=== PATIENT | male | born 1985 | race African-American/Black ===

== ENCOUNTER 2016-05-24 23:21 | Emergency (ER) | payer OTHER, MEDICAID ==
[2016-05-24 23:53] LABS: ABSOLUTE EOSINOPHILS # (AUTO) 0.1 10^3/uL (0.0-0.6); ABSOLUTE LYMPHOCYTES (AUTO) 2.9 10^3/uL (0.5-4.7); ABSOLUTE MONOCYTES (AUTO) 0.6 10^3/uL (0.1-1.4); ABSOLUTE NEUT (AUTO) 4.4 10^3/uL (1.7-8.2); BASOPHILS % (AUTO) 0.4 % (0-2); EOSINOPHILS % (AUTO) 1.5 % (0-6); HEMATOCRIT 41.2 % (37.9-51.0); HEMOGLOBIN 14.3 g/dL (13.5-17.0); HGB HCT DIFFERENCE 1.7; LYMPHOCYTES % (AUTO) 35.6 % (13-45); MEAN CORPUSCULAR HEMOGLOBIN 31.9 pg (27.0-33.4); MEAN CORPUSCULAR HGB CONC 34.7 g/dL (32.0-36.0); MEAN CORPUSCULAR VOLUME 92 fl (80-97); MONOCYTES % (AUTO) 7.4 % (3-13); RED BLOOD COUNT 4.48 10^6/uL (4.35-5.55); RED CELL DISTRIBUTION WIDTH 13.3 % (11.5-14.0); SEGMENTED NEUTROPHILS % (AUTO) 55.1 % (42-78)
[2016-05-25 00:03] LABS: APPEARANCE,URINE CLEAR; BILIRUBIN,URINE NEGATIVE (NEGATIVE); GLUCOSE, URINE NEGATIVE (NEGATIVE); KETONES,URINE NEGATIVE (NEGATIVE); LEUKOCYTE ESTERASE,URINE NEGATIVE (NEGATIVE); NITRITE,URINE NEGATIVE (NEGATIVE); PROTEIN,URINE NEGATIVE (NEGATIVE); URINE SPECIFIC GRAVITY 1.008; UROBILINOGEN,URINE NEGATIVE mg/dL (<2.0)
[2016-05-25 00:08] LABS: ALANINE AMINOTRANSFERASE 31 U/L (21-72); ALBUMIN 4.4 g/dL (3.5-5.0); ALKALINE PHOSPHATASE 79 U/L (38-126); ANION GAP 13 (5-19); ASPARTATE AMINO TRANSFERASE 22 U/L (17-59); BILIRUBIN,DIRECT 0.2 mg/dL (0.0-0.4); BILIRUBIN,TOTAL 0.4 mg/dL (0.2-1.3); BLOOD UREA NITROGEN 10 mg/dL (7-20); CALCIUM 9.4 mg/dL (8.4-10.2); CARBON DIOXIDE 24 mmol/L (22-30); CHLORIDE 106 mmol/L (98-107); CREATININE RESULT 0.84 mg/dL (0.52-1.25); GLUCOSE 118 mg/dL (75-110); POTASSIUM 4.1 mmol/L (3.6-5.0); SODIUM 142.5 mmol/L (137-145); TOTAL PROTEIN 6.9 g/dL (6.3-8.2)
[2016-05-25 00:10] LABS: ALCOHOL < 10 mg/dL (NONE DETECTED)
[2016-05-25 00:16] LABS: URINE BARBITURATES SCREEN NEGATIVE; URINE METHADONE SCREEN NEGATIVE; URINE OPIATES LOW NEGATIVE; URINE PHENCYCLIDINE SCREEN NEGATIVE
--- NOTE | 2016-05-25 01:34 | ER Document Report ---
ED General - General Chief Complaint: Psych Problem Stated Complaint: SUICIDAL/HOMICIDAL IDEATION Notes: Patient is a 31-year-old male with past medical history of schizoaffective disorder who presents with suicidal ideation. Patient is very guarded historian , will not tell me exactly what happened tonight. He complains only that he has had "lots of bad stuff my life and it isn't going to ever get better". Repeatedly states "I hate life I just want to ". Denies any acute medical complaints. States he's been hospitalized in the past for similar presentations. He denies any drug or alcohol use and states he does take Zyprexa for his schizoaffective disorder. History is otherwise limited secondary to patient cooperation - Related Data Allergies/Adverse Reactions: No Known Allergies Allergy (Unverified 05/25/16 02:31) Past Medical History - General Information source: Patient - Social History Smoking Status: Current Every Day Smoker Chew tobacco use (# tins/day): No Frequency of alcohol use: None Drug Abuse: None Lives with: Other - [facility] Family History: Reviewed & Not Pertinent Psychiatric Medical History: Reports: Hx Schizophrenia Surgical Hx: Negative Review of Systems - Review of Systems Notes: Constitutional: Negative for fever. HENT: Negative for sore throat. Eyes: Negative for visual changes. Cardiovascular: Negative for chest pain. Respiratory: Negative for shortness of breath. Gastrointestinal: Negative for abdominal pain, vomiting or diarrhea. Genitourinary: Negative for dysuria. Musculoskeletal: Negative for back pain. Skin: Negative for rash. Neurological: Negative for headaches, weakness or numbness. 10 point ROS negative except as marked above and in HPI. Physical Exam - Vital signs Vitals: Temp Pulse Resp BP Pulse Ox 97.9 F 70 14 108/65 97 05/25/16 00:21 05/25/16 00:21 05/25/16 00:21 05/25/16 00:21 05/25/16 00:21 Interpretation: Normal Notes: PHYSICAL EXAMINATION: GENERAL: Well-appearing, well-nourished and in no acute distress. HEAD: Atraumatic, normocephalic. EYES: Pupils equal round and reactive to light, extraocular movements intact, sclera anicteric, conjunctiva are normal. ENT: nares patent, oropharynx clear without exudates. Moist mucous membranes. NECK: Normal range of motion, supple without lymphadenopathy LUNGS: Breath sounds clear to auscultation bilaterally and equal. No wheezes rales or rhonchi. HEART: Regular rate and rhythm without murmurs ABDOMEN: Soft, nontender, normoactive bowel sounds. No guarding, no rebound. No masses appreciated. EXTREMITIES: Normal range of motion, no pitting or edema. No cyanosis. NEUROLOGICAL: No focal neurological deficits. Moves all extremities spontaneously and on command. PSYCH: Guarded on contact. Depressed mood. Poor eye contact. SKIN: Warm, Dry, normal turgor, no rashes or lesions noted. Course - Re-evaluation Re-evalutation: 05/25/16 01:32 Patient presents with suicidal ideation with no specific plan. Patient continuously states me "I just wanted dying get this over with". He also states "I know what I'm saying will probably get me hospitalized but I don't care anymore man. I just want to . I hate life." He denies any acute medical complaints. His medical screening laboratories and exam are unremarkable. He is medically cleared for evaluation by psychiatry in the morning and has been placed on an involuntary commitment - Vital Signs Vital signs: Temp Pulse Resp BP Pulse Ox 97.9 F 70 14 108/65 97 05/25/16 00:21 05/25/16 00:21 05/25/16 00:21 05/25/16 00:21 05/25/16 00:21 - Laboratory Result Diagrams: 05/24/16 23:44 05/24/16 23:44 Laboratory results interpreted by me: 05/24/16 23:44 Glucose 118 H Salicylates < 1.0 L Acetaminophen < 10 L Discharge - Discharge Clinical Impression: Suicidal ideation Condition: Good Disposition: PSYCH HOSP/UNIT
[2016-05-25] MEDS ORDERED: IBUPROFEN 800 MG TABLET PO ONE (09:46)
[2016-05-25] MEDS ORDERED: LORATADINE 10 MG TABLET PO ONE (09:47)
--- NOTE | 2016-05-25 09:50 | ER Document Report ---
Doctor's Note Notes: 05/25/16 09:47 Medical rounds: Chart reviewed and patient interviewed briefly. Patient complains of a mild headache, also mild pressure-like sensation and decreased hearing in the right ear. Vital signs are normal. Laboratory values satisfactory. Patient is alert, oriented, and coherent. He appears to be in no distress. There is no nuchal rigidity. Otoscopy reveals some mild serous otitis media in the right ear. Orders are written for ibuprofen and Claritin. He remains medically stable, pending psych evaluation and disposition.
--- NOTE | 2016-05-25 16:07 | PSYCHOLOGICAL NOTE ---
Psych Note - Psych Note Psych Note: Patient is a 31-year-old male who presented overnight via EMS with complaints of suicidal ideations. Patient was noted upon arrival to be diagnosed with schizoaffective disorder, bipolar type and prescribed Zyprexa. Patient today states he was stressed out and acknowledges he made statements regarding wanting to . Patient reports he stays over on [facility]. He states he has been a resident there 2 weeks. Patient states prior to [facility] he was discharged from [facility] psychiatric unit. Patient reports he was at the psych unit 27 days. Patient reports [facility] to [facility], he has historically been a resident of various group homes, mostly in or around [place]. Patient states the precipitating event last night was his frustrations with the computer when he was attempting to complete his FAFSA form. Patient states he is eager to return to school and states when it did not work last night he became upset. Patient states he attempted to "walk it off," but when he was still upset he decided to call 911. Patient states that addition to wanting to enroll back in school he has other stressors stemming from familial strife between he and his stepfather. Patient is unable to tell me at this time 100% if he has his own guardian and eludes that his stepfather petitioned the court. Patient denies current suicidal/ homicidal ideations, intent, plan, means. Triage Note: "Pt presents reporting he argued with the [facility] leader about his missing meds last night; Pt is upset that his mothers EX has gardienship over him, He dosnt want to be in the [facility]. Pt broke a chair and table this afternoon and called 911 on himself. Pt perception is he is going to longterm after he is cleared here related to the chair and table. Pt states he has a "vodoo" or spirtiual curse attatched to him that cant be removed. Pt states "I' ll never have what I want in life, I'll never get what I need." Pt states "I just so tired of it all and I dont want to live anymore." pt denies a plan or a means. Pt states "its no good talking about all this cause you can't change it, This is just the way my life gonna be and I'm over it". Pt denies ever having hallucinations. My assessment of pt's spirtual comments seemed to be his spiritual beliefs not delusions. Pt is calm and cooperative, tearfull at times. Pt agrees to give us a chance to try and address his issues and contracts not to harm him self. Pt's belongings are inventoried with security in my presence and secured. Pt is wearing paper scrubs and provided with drink and food. Pt denies other needs. On visual assessment no S/S of injury and pt denies the same." [ End ] Mr. Pena, , stepfather: states he has been his legal guardian since 2012. Guardian reports the patient gets frustrated when things dont go his way, probably similar to last night. Guardian states in the 12th grade, was his initial onset of Schizophrenia. Guardian states he is not able to take on but so much at a time (mentally). He states that the patient has never attempted to harm anyone else or himself. Guardian adamant that he has no knowledge of patient putting his hands on others. Guardian states that his (who is not the patient's mother) is having surgery tomorrow and the patient cannot come to his home, nor would the patient want to see him because he does not like him, nor does he want him to be his guardian. Guardian states the patient's mother does have communication with the patient; however, has similar MH needs. [facility] : states the patient is unable to return to the [facility] requesting return contact from Director. Did provide meds: Olanzapine 15 mg po bid Famotidine 20 mg po bid Quetiapine Fuma 100 mg po qhs Prazosin HCL 1mg po qhs Zopidem 10 mg po prn qhs Mr. Fuentes returned contact and stated that the patient verbally threatened staff and residents that he was going to kill them. Mr. Fuentes states the patient cannot come back to the home due to the verbal threats. Discussed with salesman/owner that under the [place] GS they cannot refuse a patient unless there was a physical act and that a verbal threat is not covered under the statute to legally evict a resident. Mr. Fuentes stated, "we can not have an individual reside at the [facility] who is threatening to kill others," and states, "if the state shows up, then we will deal with the state." Claim Manager with [facility] : left msg via call center requesting return contact. Did return contact stating she would look into alternative residential settings; however, there would not be any options this evening, nor are there respite options. Will return contact tomorrow. Patient is A&O. Mood is euthymic with normal affect. Patient denies suicidal/ homicidal ideations, intent, plan, or means. Patient denies SI/HI, intent, plan , or means. Patient denies A/V H; delusions not noted. Thought processes were guarded. Conversational speech was WNL for this patient. Intellectual abilities were estimated within average range. Attention and focus were poor. Insight, judgment, and impulse control were poor. Unspecified Schizophrenia and Other Psychotic Disorder Patient is psychiatrically cleared and recommended for rescind IVC. Patient no longer meets criteria for IVC as she denies SI/HI and denies intent behind his statements last night. Patient is recommended to remain in the ED under a mental health hold for additional observation and placement in a residential setting. Patient will not be able to leave the ER. Patient does have a legal guardian who lives out of the area and states the patient does not like him, would not want to be there, and his is having surgery in the morning and he cannot warp picker the patient and manage him safely in his home. Patient has been referred for medical social worker consult to assist with discharge planning. At this time, after discussing with MD there is no safe discharge option at this time. I consulted with Dr. Willett in regards to the care and management of this patient. ED MD is in agreement with disposition and recommendations.
[2016-05-25] MEDS ORDERED: CLONIDINE HCL 0.1 MG TABLET PO SCH (18:00)
[2016-05-25] MEDS: FAMOTIDINE 20 MG TABLET PO SCH (18:03)
[2016-05-25] MEDS: OLANZAPINE 5 MG TABLET PO SCH (18:03)
[2016-05-25] MEDS: QUETIAPINE FUMARATE 100 MG TABLET PO SCH (21:58)
[2016-05-25] MEDS: CLONIDINE HCL 0.2 MG TABLET PO SCH (21:59)
[2016-05-26] MEDS: FAMOTIDINE 20 MG TABLET PO SCH ×2 (09:38→19:44)
[2016-05-26] MEDS: OLANZAPINE 5 MG TABLET PO SCH ×2 (09:38→19:43)
--- NOTE | 2016-05-26 10:13 | PSYCHOLOGICAL NOTE ---
Psych Note - Psych Note Psych Note: Patient is a 31-year-old male who initially presented via EMS from his longterm, [facility]. The residential placement has refused to accept the patient back into their program. Patient is not his own guardian and therefore cannot be discharged to the homeless retirement via cab. Patient denied suicidal and homicidal ideations. Patient has been calm and cooperative while here in the department. [facility] adult protective services : Filed APS report with social and human services assistant Aysha. Advised that patient has been left in the emergency room by both his guardian as well as his residential placement. Provided information and answered all questions to the best of my ability. Requested return phone contact. Frit Mixer And Burner with [facility] : States she will attempt to identify an alternative placement. She additionally reports she cannot provide a timeframe and states it could be the later part of this week if she is able to find a replacement. pharmacy clinical coordinator advised that that is too lengthy of a time and requested her assistance in finding something sooner. She will return contact Patient is A&O. Mood is euthymic with normal affect. Patient denies suicidal/ homicidal ideations, intent, plan, or means. Patient denies SI/HI, intent, plan , or means. Patient denies A/V H; delusions not noted. Thought processes were guarded. Conversational speech was WNL for this patient. Intellectual abilities were estimated within average range. Attention and focus were poor. Insight, judgment, and impulse control were poor. Unspecified Schizophrenia and Other Psychotic Disorder Patient remains psychiatrically cleared for discharge, but is recommended to remain on a mental health hold until an appropriate discharge plan is made. I consulted with Dr. Willett in regards to the care and management of this patient. ED MD is in agreement with disposition and recommendations.
--- NOTE | 2016-05-26 13:11 | EKG REPORT ---
SEVERITY:- BORDERLINE ECG - SINUS RHYTHM BORDERLINE T ABNORMALITIES, DIFFUSE LEADS : Confirmed by: Pam Sarah MD 26-May-2016 13:10:35
--- NOTE | 2016-05-26 13:31 | ER Document Report ---
Doctor's Note Notes: 05/26/16 10:30 Patient is resting comfortably. No complaints. He does not need anything at this time. Vitals are stable. Patient is medically stable. We are trying to get him into a residence at this time. Discussed with mental health.
[2016-05-26] MEDS: CLONIDINE HCL 0.2 MG TABLET PO SCH (23:30)
[2016-05-26] MEDS: QUETIAPINE FUMARATE 100 MG TABLET PO SCH (23:30)
--- NOTE | 2016-05-27 09:38 | ER Document Report ---
Doctor's Note Notes: 05/27/16 09:37 Resting comfortably on the bed. Vital signs stable. Continues to be a social disposition problem. Social workers are trying to find another snf for him to go into.
[2016-05-27] MEDS: OLANZAPINE 5 MG TABLET PO SCH ×2 (10:19→18:53)
[2016-05-27] MEDS: FAMOTIDINE 20 MG TABLET PO SCH ×2 (10:19→18:54)
--- NOTE | 2016-05-27 16:32 | PSYCHOLOGICAL NOTE ---
Psych Note - Psych Note Psych Note: Patient is a 31-year-old male who initially presented via EMS from his residential, [facility]. The residential placement has refused to accept the patient back into their program. Note, this has been reported to DSS as it is considered an inappropriate discharge. Patient is not his own guardian, and per patient as well as his guardian, his guardian is not a placement option either. Patient today inquires into his placement status and requests that his belongings and check be brought to the ER by the residential. Patient denied suicidal and homicidal ideations. Patient has been calm and cooperative while here in the department. Guardian, Mr Pena contacted to request that he provide copies of legal guardianship documents. Guardian continues to state he will not pick the patient up and that he cannot be in his home. Attempted to discuss with guardian that by him refusing to pick up and delivery driver the patient, he is abandoning him , which is a legal violation. Guardian stated other hospitals have tried to say the same thing, he is retired law enforcement. and he knows his rights and he will not pick the patient up, nor can the hospital put the patient out on the streets. Discussed with Guardian that charges can be pursued for abandonment. He repeatedly stated, "go ahead, we can play war." [facility] Adult Protective Services Cristina Nieves states: Her plan today is to call the legal guardian as well as [place]. states she will contact the guardian and request the legal documents Analytical Lab Analyst with [facility], [facility] : she talked to the general manger who stated he would not allow him to come back, but that his belongings were still there and they would bring them to him. She states she has no leads regarding residential placement. Patient is A&O. Mood is euthymic with normal affect. Patient denies suicidal/ homicidal ideations, intent, plan, or means. Patient denies SI/HI, intent, plan , or means. Patient denies A/V H; delusions not noted. Thought processes were guarded. Conversational speech was WNL for this patient. Intellectual abilities were estimated within average range. Attention and focus were poor. Insight, judgment, and impulse control were poor. Unspecified Schizophrenia and Other Psychotic Disorder Patient remains psychiatrically cleared for discharge, but is recommended to remain on a mental health hold until an appropriate discharge plan is identified. i consulted with Dr. Willett in regards to the care and management of this patient. ED MD is in agreement with disposition and recommendations.
[2016-05-27] MEDS: QUETIAPINE FUMARATE 100 MG TABLET PO SCH (22:00)
[2016-05-27] MEDS: CLONIDINE HCL 0.2 MG TABLET PO SCH (22:00)
[2016-05-28] MEDS: FAMOTIDINE 20 MG TABLET PO SCH ×2 (10:01→18:10)
[2016-05-28] MEDS: OLANZAPINE 5 MG TABLET PO SCH ×2 (10:01→18:10)
--- NOTE | 2016-05-28 17:48 | ER Document Report ---
Doctor's Note Notes: 05/28/16 17:47 Rounds: Chart reviewed and patient interviewed. Patient resting comfortably in his bed. Watching golf on TV. Answers questions appropriately. Says he feels a lot better. Vital signs are all normal although he did have one blood pressure that was 98/57. It's normal on his most recent blood pressure check. Lab studies were all essentially normal. Patient appears to be medically stable for transfer or discharge. April Brian M.D.
--- NOTE | 2016-05-28 18:02 | PSYCHOLOGICAL NOTE ---
Psych Note - Psych Note Psych Note: Patient is a 31-year-old male who initially presented via EMS from his long-term, [place]. The residential placement has refused to accept the patient back into their program. Note, this has been reported to DSS as it is considered an inappropriate discharge. Patient is not his own guardian, and per patient as well as his guardian, his guardian is not a placement option either. Patient today inquires into his placement status and requests that his belongings and check be brought to the ER by the long-term. Patient denied suicidal and homicidal ideations. Patient has been calm and cooperative while here in the department. [facility] Adult Protective Services Cristina Nieves; Left message Seals Engraver with [facility] : She provided link to placement list for discharge planners [email or web address] She continued to disclose she has been looking for a new placement but has not been successful. Unspecified Schizophrenia and Other Psychotic Disorder Patient remains psychiatrically cleared for discharge. Patient does not meet IVC criteria per [place] GS 122C. It is recommended that discharge planning take over with assistance to the patient for placement. Patient is unable to currently return to [facility]'s group homes or guardian's home. I consulted with Dr. Willett in regards to the care and management of this patient. ED MD is in agreement with disposition and recommendations.
[2016-05-28] MEDS: QUETIAPINE FUMARATE 100 MG TABLET PO SCH (23:59)
[2016-05-28] MEDS: CLONIDINE HCL 0.2 MG TABLET PO SCH (23:59)
[2016-05-29] MEDS: OLANZAPINE 5 MG TABLET PO SCH ×2 (10:07→18:02)
[2016-05-29] MEDS: FAMOTIDINE 20 MG TABLET PO SCH ×2 (10:07→18:02)
--- NOTE | 2016-05-29 11:21 | ER Document Report ---
Doctor's Note Notes: 05/29/16 11:19 Rounds: Chart reviewed and patient interviewed. Patient seems to be very stable. Carries on normal conversation about the golf tournament on TV. Says he has nowhere to go and I think that's the hold up on the patient being discharged. Vital signs are all normal. Initial labs were all normal except for hemoglobin slightly low at 12.5 and a white count of 11,800, but no signs of infection. He had a drug screen that was positive for opiates and marijuana. Patient appears to be medically stable for transfer or discharge. April Brian M.D.
[2016-05-29 14:51] VITALS: BP 112/69
--- NOTE | 2016-05-29 16:41 | PSYCHOLOGICAL NOTE ---
Psych Note - Psych Note Psych Note: Patient is a 31-year-old male who initially presented via EMS from his snf, [facility]. The residential placement has refused to accept the patient back into their program. Note, this has been reported to DSS as it is considered an inappropriate discharge. Patient is not his own guardian, and per patient as well as his guardian, his guardian is not a placement option either. Patient today inquires into his placement status and requests that his belongings and check be brought to the ER by the snf. Patient denied suicidal and homicidal ideations. Patient has been calm and cooperative while here in the department. Patient states that he and his father do not get along. He disclosed that he was told his father has guardianship over him but does not remember ever going to court or being notified that it was happening. He continued to disclose that "he doesn't care about me, it all about money and making him look good." The patient states his siblings help him more then his father ever has and would like to be able to be sent to [place] because that is where his mother and siblings live. When asked about his mother caring for him, he disclosed that his mother "is not doing well because she she has dementia." Clinician was notified by the attending nurse that the patient was talking to [facility] when he became upset and stated he always carries his backpack and he will just go get a knife and kill his father. "pt speaking w/[facility] staff, in the course of conversation, pt states that he has thoughts of placing a knife in the backpack that he carries all the time and then stabbing and hurting /killing father. pt voice was even and matter of fact." When clinician spoke with the patient, patient indicated he was frustrated with his continued stay in the ED secondary to his father's refusal to participate in the discharge planing, which would assist him in returning to the snf (patient's father is reportedly the patient's guardian). Clinician contacted Mr. Pena at 1515 to request guardianship paperwork. He stated that he was never given the information to send it like a fax number or email. Clinician asked Mr. Pena if he had pen and paper and he could have the fax number now. He stated that he was driving and unable to take it. Clinician explained this information was needed and Mr. Pena stated he had to get the paperwork and figure out which ones are needed. Clinician stated the guardianship paperwork was needed. He stated that he provided it to a housing place when the patient first came; clinician explained that this is an emergency room not housing and each organization is a different identity and needs copies. He stated that Mr. Pena stated he was in the middle of things and would not have time to send it until later. Clinician attempted phone call to [facility]'s snf; no voice mail @ [phone] Clinician contacted Mr. Pena again and explained that the guardianship paperwork was needed immediately because at this time we have no proof of guardianship and the hospital would need to consider the patient as his own guardian. Mr. Pena stated he needed to find the paperwork and it would not be until tonight. Clinician asked the guardian why he needed to find the paperwork since he has been asked for multiple days to provide the paperwork. Mr. Pena became upset and repeated he would send it when he sends it. Clinician attempted phone call to [facility]'s snf; no voice mail @ [phone] Clinician received fax of guardianship paperwork from Mr. Pena @ [phone] Unspecified Schizophrenia and Other Psychotic Disorder Patient remains psychiatrically cleared for discharge. Patient does not meet IVC criteria per [place] GS 122C. Patient's guardian has been officially established ;however, he has repeatedly refused to participate in discharge planning and has stated the patient cannot live with him. Patient's snf is not answering their phone. I consulted with Dr. Willett in regards to the care and management of this patient. ED MD is in agreement with disposition and recommendations.
== END 2016-05-29 19:15 | disposition home or self-care (01) ==
LOC: ER 23:21
DX: R45.851 Suicidal ideations (principal); R45.850 Homicidal ideations; F17.200 Nicotine dependence, unspecified, uncomplicated
CPT/HCPCS: 93005; 99285; 36415; 80307 ×4; 85025; 80053; 81001; 93010; J3490 ×14

== ENCOUNTER 2016-07-31 18:20 | Emergency (ER) | payer MEDICAID, OTHER ==
[2016-07-31] MEDS ORDERED: LORAZEPAM INJ 2 MG/1 ML VIAL ONE (18:47)
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
[2016-07-31 21:02] LABS: ABSOLUTE EOSINOPHILS # (AUTO) 0.1 10^3/uL (0.0-0.6); ABSOLUTE LYMPHOCYTES (AUTO) 2.9 10^3/uL (0.5-4.7); ABSOLUTE MONOCYTES (AUTO) 0.7 10^3/uL (0.1-1.4); ABSOLUTE NEUT (AUTO) 6.9 10^3/uL (1.7-8.2); BASOPHILS % (AUTO) 0.2 % (0-2); HEMATOCRIT 43.5 % (37.9-51.0); HEMOGLOBIN 14.7 g/dL (13.5-17.0); HGB HCT DIFFERENCE 0.6; LYMPHOCYTES % (AUTO) 27.2 % (13-45); MEAN CORPUSCULAR HEMOGLOBIN 31.7 pg (27.0-33.4); MEAN CORPUSCULAR HGB CONC 33.7 g/dL (32.0-36.0); MEAN CORPUSCULAR VOLUME 94 fl (80-97); MONOCYTES % (AUTO) 6.6 % (3-13); RED BLOOD COUNT 4.62 10^6/uL (4.35-5.55); RED CELL DISTRIBUTION WIDTH 13.6 % (11.5-14.0); WHITE BLOOD COUNT 10.7 10^3/uL (4.0-10.5)
[2016-07-31 21:14] LABS: ALANINE AMINOTRANSFERASE 35 U/L (21-72); ALBUMIN 4.2 g/dL (3.5-5.0); ALKALINE PHOSPHATASE 96 U/L (38-126); ANION GAP 12 (5-19); ASPARTATE AMINO TRANSFERASE 32 U/L (17-59); BILIRUBIN,DIRECT 0.3 mg/dL (0.0-0.4); BILIRUBIN,TOTAL 0.3 mg/dL (0.2-1.3); BLOOD UREA NITROGEN 12 mg/dL (7-20); CALCIUM 9.4 mg/dL (8.4-10.2); CARBON DIOXIDE 24 mmol/L (22-30); CHLORIDE 105 mmol/L (98-107); CREATININE RESULT 1.06 mg/dL (0.52-1.25); GLUCOSE 80 mg/dL (75-110); POTASSIUM 3.8 mmol/L (3.6-5.0); SODIUM 141.1 mmol/L (137-145); TOTAL PROTEIN 7.6 g/dL (6.3-8.2)
[2016-07-31 21:15] LABS: ALCOHOL < 10 mg/dL (NONE DETECTED)
[2016-07-31 21:32] LABS: APPEARANCE,URINE CLEAR; BILIRUBIN,URINE NEGATIVE (NEGATIVE); GLUCOSE, URINE NEGATIVE (NEGATIVE); KETONES,URINE NEGATIVE (NEGATIVE); LEUKOCYTE ESTERASE,URINE NEGATIVE (NEGATIVE); NITRITE,URINE NEGATIVE (NEGATIVE); PROTEIN,URINE NEGATIVE (NEGATIVE); URINE SPECIFIC GRAVITY 1.021; UROBILINOGEN,URINE NEGATIVE mg/dL (<2.0)
[2016-07-31 21:47] LABS: URINE BARBITURATES SCREEN NEGATIVE; URINE METHADONE SCREEN NEGATIVE; URINE OPIATES LOW NEGATIVE; URINE PHENCYCLIDINE SCREEN NEGATIVE
--- NOTE | 2016-08-01 11:01 | ER Document Report ---
Doctor's Note Notes: 08/01/16 11:01 As the rounding physician for our psychiatric patients, I have reviewed the chart, vitals, lab work. Patient has been examined and noted to be stable at this time . I am awaiting mental health in [facility] regarding placement Pateint denies SI/HI and is cooperative during interview.
--- NOTE | 2016-08-01 12:23 | ER Document Report ---
ED Psych Disorder / Suicide - General Chief Complaint: Psych Problem Stated Complaint: SUICIDAL IDEATION Time Seen by Provider: 08/01/16 10:45 Mode of Arrival: Ambulatory - OCSO Information source: Patient, [facility] Records TRAVEL OUTSIDE OF THE U.S[place] IN LAST 30 DAYS: No - HPI Patient complains to provider of: Aggression, Agitated, Other - Irritated with Guardian and custodial limitations Onset: Other - Ongoing Onset was: Gradual Quality of pain: No pain Severity: Mild Pain Level: Denies Suicide Risk Factors: Male, No spouse, Other mental health dx. - Schizoaffective Disorder, Bipolar Type Situational problems related to: Other - Residence and Guardian ([facility]) Normal mood: Yes Associated symptoms: Normal affect, Agitated, Irritable Similar symptoms previously: Yes - Chronic Recently seen / treated by doctor: Yes - [facility] Notes: Met with Patient who reported he was upset with custodial personnel and residents. Stated he is tired of being there and feels as though his life is going no where. Patient reported he is upset with father who is guardian because he sent him to [place] where he is isolated from his family and friends. Patient reported nothing seems to work out for him and feels as though people conspire against him. Patient reported nothing has changed since last admission and is aware the hospital can not really do anything to change his situation. He admitted to taking his medications and attending [facility]. He reported he wants vocational rehabilitation and is to receive a phone call from them on Wednesday. Patient was encouraged to speak with [facility] or call them Wednesday for works purposes which may help if he is out of the home at least partly during the day / week. Patient easily calmed and agreed he could return to custodial without incident. Patient was alert and oriented to person, place, time,a nd situation. He denied suicidal / homicidal ideation, intent or plan. He denied psychosis and no delusions were noted. Thought processes were organized, linear, and rational, Conversational speech was initially loud, but calmed to within normal limits for rate, tone, and prosody. Intellectual abilities were estimated within normal limits. Recent and remote memory were within normal limits. Attention and concentration were good. Insight, judgment, and impulse control were poor. 295.70 (F25.0) Schizoaffective Disorder, Bipolar Type Impression / Plan: Patient is recommended for rescind of IVC as he denied suicidal / homicidal ideation, intent or plan. He recognized the ED could do nothing to change his situation and was redirected to focus on vocational rehabilitation for further opportunities. Also advised he could contact the [employer] middle [employer] teacher office to discuss his guardianship. Patient was calm and cooperative and agreed he would return to custodial without incident. ED Physician notified and in agreement with recommendation and disposition. - Related Data Allergies/Adverse Reactions: No Known Allergies Allergy (Unverified 05/25/16 02:31) Home Medications: Current Home Medications Carbamazepine [Tegretol Xr 200 mg Tab.sr] 200 mg PO QHS 08/01/16 [History] Carbamazepine [Tegretol] 100 mg PO QHS 08/01/16 [History] Famotidine 20 mg PO BID 08/01/16 [History] Olanzapine 15 mg PO BID 08/01/16 [History] Prazosin HCl [Minipress] 1 mg PO QHS 08/01/16 [History] Quetiapine Fumarate [Seroquel 100 mg Tablet] 100 mg PO QHS 08/01/16 [History] Zolpidem Tartrate [Ambien] 10 mg PO QHS PRN 08/01/16 [History] Past Medical History - General Information source: Patient - Social History Smoking Status: Never Smoker Frequency of alcohol use: None Drug Abuse: None Lives with: Other Family History: Reviewed & Not Pertinent Psychiatric Medical History: Reports: Hx Bipolar Disorder, Hx Depression, Hx Schizophrenia Surgical Hx: Negative Physical Exam - Vital signs Vitals: Pulse Resp BP Pulse Ox 81 18 118/75 99 08/01/16 04:29 08/01/16 04:29 08/01/16 04:29 08/01/16 04:29 Course - Vital Signs Vital signs: Temp Pulse Resp BP Pulse Ox 81 18 118/75 99 08/01/16 04:29 08/01/16 04:29 08/01/16 04:29 08/01/16 04:29 - Laboratory Result Diagrams: 07/31/16 18:55 07/31/16 18:55 Laboratory results interpreted by me: 07/31/16 07/31/16 07/31/16 18:55 18:55 18:55 WBC 10.7 H Urine Ascorbic Acid 20 H Salicylates < 1.0 L Acetaminophen < 10 L Discharge - Discharge Clinical Impression: Aggression, Passive suicidal ideations, Schizoaffective disorder, bipolar type Condition: Fair Disposition: HOME, SELF-CARE Additional Instructions: Please follow up with your outpatient provider when scheduled. Follow through with Vocational Rehabilitation as needed.
[2016-08-01 12:33] VITALS: BP 106/67
--- NOTE | 2016-08-03 09:38 | EKG REPORT ---
SEVERITY:- ABNORMAL ECG - SINUS RHYTHM PROBABLE LEFT ATRIAL ABNORMALITY NONSPECIFIC T ABNORMALITIES, DIFFUSE LEADS : Confirmed by: Nata Price 03-Aug-2016 09:38:03
== END 2016-08-01 14:43 | disposition home or self-care (01) ==
LOC: ER 18:20
DX: F25.0 Schizoaffective disorder, bipolar type (principal); R45.851 Suicidal ideations
CPT/HCPCS: 36415; 80053; 80307; 81001; 85025; 93005; 93010; 99284

== ENCOUNTER → 2016-08-12 | Outpatient (CLI) | payer MEDICAID ==
[2016-08-12 09:32] LABS: HEMATOCRIT 44.9 % (37.9-51.0); HGB HCT DIFFERENCE 0.1; MEAN CORPUSCULAR HEMOGLOBIN 31.1 pg (27.0-33.4); MEAN CORPUSCULAR HGB CONC 33.5 g/dL (32.0-36.0); MEAN CORPUSCULAR VOLUME 93 fl (80-97); RED BLOOD COUNT 4.83 10^6/uL (4.35-5.55); RED CELL DISTRIBUTION WIDTH 13.3 % (11.5-14.0); WHITE BLOOD COUNT 6.7 10^3/uL (4.0-10.5)
[2016-08-12 10:03] LABS: ALANINE AMINOTRANSFERASE 30 U/L (21-72); ALBUMIN 4.7 g/dL (3.5-5.0); ALKALINE PHOSPHATASE 111 U/L (38-126); ANION GAP 13 (5-19); ASPARTATE AMINO TRANSFERASE 22 U/L (17-59); BILIRUBIN,DIRECT 0.3 mg/dL (0.0-0.4); BILIRUBIN,TOTAL 0.6 mg/dL (0.2-1.3); BLOOD UREA NITROGEN 14 mg/dL (7-20); CALCIUM 9.4 mg/dL (8.4-10.2); CARBON DIOXIDE 22 mmol/L (22-30); CHLORIDE 106 mmol/L (98-107); CREATININE RESULT 0.92 mg/dL (0.52-1.25); GLUCOSE 104 mg/dL (75-110); POTASSIUM 4.6 mmol/L (3.6-5.0); SODIUM 140.7 mmol/L (137-145)
== END ==
LOC: OD 08:13
PROVIDERS: ATTEND Psychiatry & Neurology Psychiatry
DX: F25.0 Schizoaffective disorder, bipolar type (principal); Z79.899 Other long term (current) drug therapy
CPT/HCPCS: 36415; 80053; 85027

== ENCOUNTER 2016-08-24 10:35 | Emergency (ER) | payer MEDICAID ==
--- NOTE | 2016-08-24 11:36 | ER Document Report ---
ED GI/ - General Chief Complaint: Abdominal Pain Stated Complaint: ABDOMINAL PAIN Time Seen by Provider: 08/24/16 11:30 Notes: The patient is a 31-year-old male, past medical history schizoaffective disorder , presents with 4 years mid abdominal knotting is intermittent. He denies any pain, nausea, vomiting, diarrhea, constipation, urinary symptoms, suicidal ideation or homicidal ideation, chest pain or shortness of breath. TRAVEL OUTSIDE OF THE [place] IN LAST 30 DAYS: No - Related Data Allergies/Adverse Reactions: benztropine [From Cogentin] Allergy (Verified 08/24/16 11:00) divalproex sodium [From Depakote] Allergy (Verified 08/24/16 11:00) haloperidol [From Haldol] Allergy (Verified 08/24/16 11:00) risperidone [From Risperdal] Allergy (Verified 08/24/16 11:00) ziprasidone [From Geodon] Allergy (Verified 08/24/16 11:00) Past Medical History - General Information source: Patient - Social History Smoking Status: Current Every Day Smoker Family History: Reviewed & Not Pertinent Patient has suicidal ideation: No Patient has homicidal ideation: No Renal/ Medical History: Denies: Hx Peritoneal Dialysis Psychiatric Medical History: Reports: Hx Bipolar Disorder, Hx Depression, Hx Schizophrenia Review of Systems - Review of Systems Notes: REVIEW OF SYSTEMS: CONSTITUTIONAL: -fevers, -chills EENT: -eye pain, -difficulty swallowing, -nasal congestion CARDIOVASCULAR:-chest pain, -syncope. RESPIRATORY: -cough, -SOB GASTROINTESTINAL: +abdominal knotting, -abdominal pain, - nausea, -vomiting, - diarrhea GENITOURINARY: -dysuria, -hematuria MUSCULOSKELETAL: -back pain, -neck pain SKIN: -rash or skin lesions. HEMATOLOGIC: -easy bruising or bleeding. LYMPHATIC: -swollen, enlarged glands. NEUROLOGICAL: -altered mental status or loss of consciousness, -headache, - neurologic symptoms PSYCHIATRIC: -anxiety, -depression. ALL OTHER SYSTEMS REVIEWED AND NEGATIVE. Physical Exam - Vital signs Vitals: Temp Pulse Resp BP Pulse Ox 98.4 F 65 16 118/76 98 08/24/16 11:01 08/24/16 11:01 08/24/16 11:01 08/24/16 11:01 08/24/16 11:01 - Notes Notes: PHYSICAL EXAMINATION: GENERAL: Well-appearing, well-nourished and in no acute distress. HEAD: Atraumatic, normocephalic. EYES: Pupils equal round and reactive to light, extraocular movements intact, sclera anicteric, conjunctiva are normal. ENT: nares patent, oropharynx clear without exudates. Moist mucous membranes. NECK: Normal range of motion, supple without lymphadenopathy LUNGS: Breath sounds clear to auscultation bilaterally and equal. No wheezes rales or rhonchi. HEART: Regular rate and rhythm without murmurs ABDOMEN: Soft, nontender, normoactive bowel sounds. No guarding, no rebound. No masses appreciated. EXTREMITIES: Normal range of motion, no pitting or edema. No cyanosis. NEUROLOGICAL: Cranial nerves grossly intact. Normal speech, normal gait. Normal sensory and motor exams. PSYCH: Normal mood, normal affect. SKIN: Warm, Dry, normal turgor, no rashes or lesions noted. Course - Re-evaluation Re-evalutation: Patient abdominal knotting is ongoing for the past 4 years. His labs are unremarkable. He has absolutely no abdominal tenderness and is not having any pain when he eats. Will have him follow-up with his primary care physician. - Vital Signs Vital signs: Temp Pulse Resp BP Pulse Ox 98.4 F 65 16 118/76 98 08/24/16 11:01 08/24/16 11:01 08/24/16 11:01 08/24/16 11:01 08/24/16 11:01 - Laboratory Result Diagrams: 08/24/16 11:33 08/24/16 11:33 Laboratory results interpreted by me: 08/24/16 11:33 Carbon Dioxide 21 L Discharge - Discharge Clinical Impression: Abdominal cramping Condition: Stable Disposition: HOME, SELF-CARE Additional Instructions: ABDOMINAL PAIN: There are many causes of abdominal pain. Pain can mean a serious problem requiring surgery (such as appendicitis). It can also be an innocent problem that goes away on its own (such as a viral infection). Often, time must pass to determine the cause of pain. The physician does not feel that hospitalization is necessary, at present. Things may change within the next 24 hours. Call the doctor or come back for re- examination if any problems occur, such as: (1) Pain that becomes more severe, steady, or becomes concentrated in one specific area. Also, pain that is more severe with movement or coughing. (2) Vomiting that persists or becomes more frequent. (3) Blood in the vomitus, urine, or bowel movements. Blood in the stool may have a tarry or black appearance. (4) Shaking chills or fever greater than 100 degrees F. (5) The abdomen becomes more distended or swollen. (6) Bowel movements cease. (7) Failure to improve as expected. NORMAL EXAM AND WORKUP: At this time, your examination and workup show no significant abnormality. No significant abnormal physical findings are noted. All laboratory, EKG, and imaging (x-ray, CT scans, ultrasound) studies that were ordered show no significant abnormality. Although your examination and all studies that were ordered showed no significant abnormal finding, there are no examinations and no studies that are 100% accurate. There is always the possibility that some abnormality could exist and not be detected with physical examination or within the limits and capabilities of laboratory and other studies. You should return or follow up as you were instructed on your visit today for further evaluation if your symptoms do not resolve. ANTISPASMODICS: You have been given a prescription for an antispasmodic medicine. This type of drug is used to decrease cramping and pain in the intestines. It is also used to decrease secretion of internal fluids (such as stomach acid in ulcer disease or pancreatic juice in pancreas disease). This medicine may cause drowsiness, especially with the first dose. Do not operate machinery or drive until all side effects have resolved. Do not combine with alcohol. Other common side effects include dry mouth and eyes. In older persons, antispasmodics can occasionally cause urinary retention, constipation, or trouble focusing the eyes. Glaucoma may be worsened by this medicine. FOLLOW-UP CARE: If you have been referred to a physician for follow-up care, call the physician s office for an appointment as you were instructed or within the next two days. If you experience worsening or a significant change in your symptoms, notify the physician immediately or return to the Emergency Department at any time for re-evaluation. Prescriptions: Dicyclomine HCl [Bentyl 10 mg Capsule] 1 cap PO TID #30 cap Referrals: YARA JONES MD [ACTIVE STAFF] - Follow up as needed
[2016-08-24 11:55] LABS: ABSOLUTE EOSINOPHILS # (AUTO) 0.1 10^3/uL (0.0-0.6); ABSOLUTE LYMPHOCYTES (AUTO) 1.8 10^3/uL (0.5-4.7); ABSOLUTE MONOCYTES (AUTO) 0.5 10^3/uL (0.1-1.4); ABSOLUTE NEUT (AUTO) 4.5 10^3/uL (1.7-8.2); BASOPHILS % (AUTO) 0.5 % (0-2); EOSINOPHILS % (AUTO) 1.1 % (0-6); HEMOGLOBIN 14.9 g/dL (13.5-17.0); HGB HCT DIFFERENCE 0.7; LYMPHOCYTES % (AUTO) 26.1 % (13-45); MEAN CORPUSCULAR HEMOGLOBIN 31.3 pg (27.0-33.4); MEAN CORPUSCULAR HGB CONC 33.9 g/dL (32.0-36.0); MEAN CORPUSCULAR VOLUME 92 fl (80-97); MONOCYTES % (AUTO) 6.7 % (3-13); RED BLOOD COUNT 4.76 10^6/uL (4.35-5.55); RED CELL DISTRIBUTION WIDTH 13.2 % (11.5-14.0); SEGMENTED NEUTROPHILS % (AUTO) 65.6 % (42-78); WHITE BLOOD COUNT 6.9 10^3/uL (4.0-10.5)
[2016-08-24 12:19] LABS: ALANINE AMINOTRANSFERASE 39 U/L (21-72); ALBUMIN 4.6 g/dL (3.5-5.0); ALKALINE PHOSPHATASE 115 U/L (38-126); ANION GAP 12 (5-19); ASPARTATE AMINO TRANSFERASE 26 U/L (17-59); BILIRUBIN,DIRECT 0.3 mg/dL (0.0-0.4); BILIRUBIN,TOTAL 0.4 mg/dL (0.2-1.3); BLOOD UREA NITROGEN 11 mg/dL (7-20); CALCIUM 9.4 mg/dL (8.4-10.2); CARBON DIOXIDE 21 mmol/L (22-30); CHLORIDE 107 mmol/L (98-107); CREATININE RESULT 0.86 mg/dL (0.52-1.25); GLUCOSE 97 mg/dL (75-110); LIPASE 60.1 U/L (23-300); POTASSIUM 4.4 mmol/L (3.6-5.0); SODIUM 139.9 mmol/L (137-145); TOTAL PROTEIN 7.8 g/dL (6.3-8.2)
[2016-08-24 13:03] VITALS: BP 132/80
== END 2016-08-24 13:01 | disposition home or self-care (01) ==
LOC: ER 10:35
DX: R10.9 Unspecified abdominal pain (principal); F17.200 Nicotine dependence, unspecified, uncomplicated
CPT/HCPCS: 36415; 80053; 83690; 85025; 99284

== ENCOUNTER 2016-10-04 20:56 | Emergency (ER) | payer MEDICAID ==
[2016-10-04 21:54] LABS: ABSOLUTE EOSINOPHILS # (AUTO) 0.3 10^3/uL (0.0-0.6); ABSOLUTE LYMPHOCYTES (AUTO) 3.5 10^3/uL (0.5-4.7); ABSOLUTE NEUT (AUTO) 8.9 10^3/uL (1.7-8.2); BASOPHILS % (AUTO) 0.3 % (0-2); EOSINOPHILS % (AUTO) 1.9 % (0-6); HEMOGLOBIN 15.3 g/dL (13.5-17.0); HGB HCT DIFFERENCE 0.9; LYMPHOCYTES % (AUTO) 25.6 % (13-45); MEAN CORPUSCULAR HEMOGLOBIN 31.9 pg (27.0-33.4); MEAN CORPUSCULAR VOLUME 94 fl (80-97); MONOCYTES % (AUTO) 7.4 % (3-13); RED BLOOD COUNT 4.81 10^6/uL (4.35-5.55); RED CELL DISTRIBUTION WIDTH 13.3 % (11.5-14.0); SEGMENTED NEUTROPHILS % (AUTO) 64.8 % (42-78); WHITE BLOOD COUNT 13.8 10^3/uL (4.0-10.5)
[2016-10-04 22:02] LABS: ALANINE AMINOTRANSFERASE 32 U/L (21-72); ALBUMIN 4.8 g/dL (3.5-5.0); ALKALINE PHOSPHATASE 129 U/L (38-126); ANION GAP 15 (5-19); ASPARTATE AMINO TRANSFERASE 25 U/L (17-59); BILIRUBIN,DIRECT 0.4 mg/dL (0.0-0.4); BILIRUBIN,TOTAL 0.5 mg/dL (0.2-1.3); BLOOD UREA NITROGEN 13 mg/dL (7-20); CALCIUM 9.9 mg/dL (8.4-10.2); CARBON DIOXIDE 22 mmol/L (22-30); CHLORIDE 101 mmol/L (98-107); CREATININE RESULT 1.11 mg/dL (0.52-1.25); GLUCOSE 91 mg/dL (75-110); POTASSIUM 3.9 mmol/L (3.6-5.0); SODIUM 138.3 mmol/L (137-145); TOTAL PROTEIN 8.4 g/dL (6.3-8.2)
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
[2016-10-04 22:03] LABS: ALCOHOL < 10 mg/dL (NONE DETECTED)
[2016-10-04 22:50] LABS: APPEARANCE,URINE CLEAR; BILIRUBIN,URINE NEGATIVE (NEGATIVE); GLUCOSE, URINE NEGATIVE (NEGATIVE); KETONES,URINE NEGATIVE (NEGATIVE); LEUKOCYTE ESTERASE,URINE NEGATIVE (NEGATIVE); NITRITE,URINE NEGATIVE (NEGATIVE); PROTEIN,URINE NEGATIVE (NEGATIVE); URINE SPECIFIC GRAVITY 1.006; UROBILINOGEN,URINE NEGATIVE mg/dL (<2.0)
[2016-10-04 23:03] LABS: URINE BARBITURATES SCREEN NEGATIVE; URINE METHADONE SCREEN NEGATIVE; URINE OPIATES LOW NEGATIVE; URINE PHENCYCLIDINE SCREEN NEGATIVE
[2016-10-04] MEDS ORDERED: BENZONATATE 100 MG CAPSULE PO ONE (23:23)
[2016-10-05] MEDS ORDERED: ACETAMINOPHEN 325 MG TABLET PO ONE (00:47)
--- NOTE | 2016-10-05 07:54 | EKG REPORT ---
SEVERITY:- BORDERLINE ECG - SINUS RHYTHM BORDERLINE T ABNORMALITIES, INFERIOR LEADS : Confirmed by: Aaron Mcneill MD 05-Oct-2016 07:53:11
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
[2016-10-05] MEDS ORDERED: CARBAMAZEPINE 200 MG TABLET PO ONE (10:22)
[2016-10-05] MEDS ORDERED: FAMOTIDINE 20 MG TABLET PO ONE (10:22)
[2016-10-05] MEDS ORDERED: OLANZAPINE 5 MG TABLET PO ONE (10:22)
--- NOTE | 2016-10-05 10:26 | ER Document Report ---
Doctor's Note Notes: 10/05/16 10:25 The patient's intermediate is sending transportation to pick him up and taken back. He will receive his morning dose of medications that were verified through his pharmacy. He has been seen by psychiatry department and is psychiatrically cleared for discharge, he was seen by the emergency medicine department and is medically cleared for discharge. He was given instructions about follow-up for his dental disease.
[2016-10-05 12:26] VITALS: BP 132/70
== END 2016-10-05 10:30 | disposition home or self-care (01) ==
LOC: ER 20:56
DX: F25.9 Schizoaffective disorder, unspecified (principal); K08.89 Other specified disorders of teeth and supporting structures; R45.850 Homicidal ideations; F17.200 Nicotine dependence, unspecified, uncomplicated; Z88.8 Allergy status to other drugs, medicaments and biological substances
CPT/HCPCS: 93005; 99284; 36415; 80307 ×4; 85025; 80053; 81001; 93010; J3490 ×5

== ENCOUNTER 2016-11-03 05:38 | Emergency (ER) | payer OTHER ==
--- NOTE | 2016-11-03 05:49 | ER Document Report ---
ED Medical Screen (RME) - General Information source: Patient TRAVEL OUTSIDE OF THE U.S. IN LAST 30 DAYS: No <CINDY SEPULVEDA - Last Filed: 11/03/16 05:48> - Related Data Smoking: Other - Marijuana <MILAD OLIVARES - Last Filed: 11/03/16 06:03> - General Stated Complaint: SUICIDAL IDEATION Time Seen by Provider: 11/03/16 05:46 Notes: Patient presents complaining of having suicide thoughts with a plan to use a gun to kill himself. Patient has a history of depression, PTSD and schizoaffective disorder. Patient does state that he was weaned off of 2 medications recently. Patient states he is otherwise been compliant with his medications. (CINDY SEPULVEDA) - Related Data Allergies/Adverse Reactions: benztropine [From Cogentin] Allergy (Verified 11/03/16 06:02) divalproex sodium [From Depakote] Allergy (Verified 11/03/16 06:02) haloperidol [From Haldol] Allergy (Verified 11/03/16 06:02) risperidone [From Risperdal] Allergy (Verified 11/03/16 06:02) ziprasidone [From Geodon] Allergy (Verified 11/03/16 06:02) Past Medical History Renal/ Medical History: Denies: Hx Peritoneal Dialysis Psychiatric Medical History: Reports: Hx Bipolar Disorder, Hx Depression, Hx Schizophrenia - Immunizations Hx Diphtheria, Pertussis, Tetanus Vaccination: Yes <CINDY SEPULVEDA - Last Filed: 11/03/16 05:48> Physical Exam - Psychological Associated symptoms: Flat affect <CINDY SEPULVEDA - Last Filed: 11/03/16 05:48>
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
[2016-11-03 06:22] LABS: ABSOLUTE EOSINOPHILS # (AUTO) 0.4 10^3/uL (0.0-0.6); ABSOLUTE LYMPHOCYTES (AUTO) 1.6 10^3/uL (0.5-4.7); ABSOLUTE MONOCYTES (AUTO) 1.1 10^3/uL (0.1-1.4); ABSOLUTE NEUT (AUTO) 8.2 10^3/uL (1.7-8.2); BASOPHILS % (AUTO) 0.4 % (0-2); EOSINOPHILS % (AUTO) 3.1 % (0-6); HEMOGLOBIN 13.9 g/dL (13.5-17.0); HGB HCT DIFFERENCE 0.7; LYMPHOCYTES % (AUTO) 14.6 % (13-45); MEAN CORPUSCULAR VOLUME 94 fl (80-97); MONOCYTES % (AUTO) 9.3 % (3-13); RED BLOOD COUNT 4.35 10^6/uL (4.35-5.55); RED CELL DISTRIBUTION WIDTH 13.3 % (11.5-14.0); SEGMENTED NEUTROPHILS % (AUTO) 72.6 % (42-78); WHITE BLOOD COUNT 11.3 10^3/uL (4.0-10.5)
[2016-11-03 06:35] LABS: ALANINE AMINOTRANSFERASE 49 U/L (21-72); ALBUMIN 4.3 g/dL (3.5-5.0); ALKALINE PHOSPHATASE 113 U/L (38-126); ANION GAP 10 (5-19); ASPARTATE AMINO TRANSFERASE 30 U/L (17-59); BILIRUBIN,DIRECT 0.3 mg/dL (0.0-0.4); BILIRUBIN,TOTAL 0.3 mg/dL (0.2-1.3); BLOOD UREA NITROGEN 12 mg/dL (7-20); CALCIUM 9.3 mg/dL (8.4-10.2); CARBON DIOXIDE 27 mmol/L (22-30); CHLORIDE 105 mmol/L (98-107); CREATININE RESULT 0.89 mg/dL (0.52-1.25); GLUCOSE 121 mg/dL (75-110); POTASSIUM 3.7 mmol/L (3.6-5.0); SODIUM 142.1 mmol/L (137-145); TOTAL PROTEIN 7.1 g/dL (6.3-8.2)
[2016-11-03 06:43] LABS: ALCOHOL < 10 mg/dL (NONE DETECTED); VALPROIC ACID < 10.0 ug/mL (50.0-120.0)
--- NOTE | 2016-11-03 06:48 | RADIOLOGY REPORT (SQ) ---
EXAM DESCRIPTION: CHEST SINGLE VIEW COMPLETED DATE/TIME: 11/03/2016 6:37 am REASON FOR STUDY: Cough COMPARISON: None. EXAM PARAMETERS: NUMBER OF VIEWS: One view. TECHNIQUE: Single frontal radiographic view of the chest acquired. RADIATION DOSE: NA LIMITATIONS: None. FINDINGS: LUNGS AND PLEURA: No opacities, masses or pneumothorax. No pleural effusion. MEDIASTINUM AND HILAR STRUCTURES: No masses. Contour normal. HEART AND VASCULAR STRUCTURES: Heart normal in size. Normal vasculature. BONES: No acute findings. HARDWARE: None in the chest. OTHER: No other significant finding. IMPRESSION: NO ACUTE RADIOGRAPHIC FINDING IN THE CHEST. TECHNICAL DOCUMENTATION: JOB ID: [id number]
--- NOTE | 2016-11-03 07:02 | EKG REPORT ---
SEVERITY:- ABNORMAL ECG - SINUS RHYTHM NONSPECIFIC T ABNORMALITIES, DIFFUSE LEADS : Confirmed by: Nata Price 03-Nov-2016 07:01:36
[2016-11-03 07:05] LABS: APPEARANCE,URINE SLIGHTLY-CLOUDY; BILIRUBIN,URINE NEGATIVE (NEGATIVE); CALCIUM OXALATE CRYSTALS,URINE FEW /HPF; GLUCOSE, URINE NEGATIVE (NEGATIVE); KETONES,URINE TRACE mg/dL (NEGATIVE); LEUKOCYTE ESTERASE,URINE TRACE (NEGATIVE); NITRITE,URINE NEGATIVE (NEGATIVE); PROTEIN,URINE NEGATIVE (NEGATIVE); URINE SPECIFIC GRAVITY 1.031
[2016-11-03 07:19] LABS: URINE BARBITURATES SCREEN NEGATIVE; URINE METHADONE SCREEN NEGATIVE; URINE OPIATES LOW NEGATIVE; URINE PHENCYCLIDINE SCREEN NEGATIVE
[2016-11-03 11:59] VITALS: BP 118/79
== END 2016-11-03 12:01 | disposition home or self-care (01) ==
LOC: ER 05:38
DX: F25.0 Schizoaffective disorder, bipolar type (principal); F43.10 Post-traumatic stress disorder, unspecified; R05 Cough; F17.200 Nicotine dependence, unspecified, uncomplicated; Z88.8 Allergy status to other drugs, medicaments and biological substances
CPT/HCPCS: 36415; 71010; 80053; 80164; 80307; 81001; 85025; 93005; 93010; 99284

== ENCOUNTER 2016-11-04 18:44 | Emergency (ER) | payer OTHER ==
[2016-11-04 19:34] LABS: APPEARANCE,URINE SLIGHTLY-CLOUDY; BILIRUBIN,URINE SMALL (NEGATIVE); CALCIUM OXALATE CRYSTALS,URINE RARE /HPF; GLUCOSE, URINE NEGATIVE (NEGATIVE); KETONES,URINE NEGATIVE (NEGATIVE); LEUKOCYTE ESTERASE,URINE NEGATIVE (NEGATIVE); NITRITE,URINE NEGATIVE (NEGATIVE); PROTEIN,URINE 30 mg/dL (NEGATIVE); URINE SPECIFIC GRAVITY 1.033
[2016-11-04 19:39] LABS: URINE BARBITURATES SCREEN NEGATIVE; URINE METHADONE SCREEN NEGATIVE; URINE OPIATES LOW NEGATIVE; URINE PHENCYCLIDINE SCREEN NEGATIVE
[2016-11-04 20:06] LABS: ABSOLUTE EOSINOPHILS # (AUTO) 0.3 10^3/uL (0.0-0.6); ABSOLUTE MONOCYTES (AUTO) 0.9 10^3/uL (0.1-1.4); BASOPHILS % (AUTO) 0.5 % (0-2); EOSINOPHILS % (AUTO) 3.5 % (0-6); HEMATOCRIT 42.3 % (37.9-51.0); HEMOGLOBIN 14.7 g/dL (13.5-17.0); HGB HCT DIFFERENCE 1.8; LYMPHOCYTES % (AUTO) 21.4 % (13-45); MEAN CORPUSCULAR HEMOGLOBIN 32.2 pg (27.0-33.4); MEAN CORPUSCULAR HGB CONC 34.8 g/dL (32.0-36.0); MEAN CORPUSCULAR VOLUME 93 fl (80-97); MONOCYTES % (AUTO) 9.9 % (3-13); RED BLOOD COUNT 4.57 10^6/uL (4.35-5.55); RED CELL DISTRIBUTION WIDTH 13.1 % (11.5-14.0); SEGMENTED NEUTROPHILS % (AUTO) 64.7 % (42-78); WHITE BLOOD COUNT 9.3 10^3/uL (4.0-10.5)
[2016-11-04 20:25] LABS: ALANINE AMINOTRANSFERASE 45 U/L (21-72); ALBUMIN 4.4 g/dL (3.5-5.0); ALKALINE PHOSPHATASE 118 U/L (38-126); ANION GAP 11 (5-19); ASPARTATE AMINO TRANSFERASE 27 U/L (17-59); BILIRUBIN,DIRECT 0.3 mg/dL (0.0-0.4); BILIRUBIN,TOTAL 0.5 mg/dL (0.2-1.3); BLOOD UREA NITROGEN 9 mg/dL (7-20); CALCIUM 9.6 mg/dL (8.4-10.2); CARBON DIOXIDE 27 mmol/L (22-30); CHLORIDE 103 mmol/L (98-107); CREATININE RESULT 1.25 mg/dL (0.52-1.25); GLUCOSE 79 mg/dL (75-110); POTASSIUM 3.7 mmol/L (3.6-5.0); SODIUM 141.2 mmol/L (137-145); TOTAL PROTEIN 7.2 g/dL (6.3-8.2)
[2016-11-04 20:27] LABS: ALCOHOL < 10 mg/dL (NONE DETECTED)
[2016-11-04] MEDS ORDERED: OLANZAPINE 5 MG TABLET PO ONE (21:08)
--- NOTE | 2016-11-04 21:13 | ER Document Report ---
ED General - General Chief Complaint: Suicidal Ideation Stated Complaint: PSYCH EVAL Time Seen by Provider: 11/04/16 19:28 Notes: Patient is a 31 year old male, well-known to this emergency department who presents today with homicidal and suicidal ideation from his long-term. Patient was just seen within the last 24 hours for suicidal ideation and subsequently discharged. States today he got into another argument at the long-term causing him to have both suicidal homicidal ideation. He plans to kill himself using a gun although he admits he does not have access to a weapon. He also states that he wants to stab the group work program director with whom he argued today. States he has otherwise been taking his medications as directed. Denies any acute medical complaints. Nothing improves or worsens his symptoms. TRAVEL OUTSIDE OF THE [place] IN LAST 30 DAYS: No - Related Data Allergies/Adverse Reactions: benztropine [From Cogentin] Allergy (Verified 11/04/16 19:10) divalproex sodium [From Depakote] Allergy (Verified 11/04/16 19:10) haloperidol [From Haldol] Allergy (Verified 11/04/16 19:10) risperidone [From Risperdal] Allergy (Verified 11/04/16 19:10) ziprasidone [From Geodon] Allergy (Verified 11/04/16 19:10) Past Medical History - General Information source: Patient - Social History Smoking Status: Current Every Day Smoker Chew tobacco use (# tins/day): No Frequency of alcohol use: None Drug Abuse: Marijuana Lives with: Other Family History: Reviewed & Not Pertinent Patient has suicidal ideation: Yes - shooting Patient has homicidal ideation: No Renal/ Medical History: Denies: Hx Peritoneal Dialysis Psychiatric Medical History: Reports: Hx Bipolar Disorder, Hx Depression, Hx Schizophrenia - Immunizations Hx Diphtheria, Pertussis, Tetanus Vaccination: Yes Review of Systems - Review of Systems Notes: Constitutional: Negative for fever. HENT: Negative for sore throat. Eyes: Negative for visual changes. Cardiovascular: Negative for chest pain. Respiratory: Negative for shortness of breath. Gastrointestinal: Negative for abdominal pain, vomiting or diarrhea. Genitourinary: Negative for dysuria. Musculoskeletal: Negative for back pain. Skin: Negative for rash. Neurological: Negative for headaches, weakness or numbness. 10 point ROS negative except as marked above and in HPI. Physical Exam - Vital signs Vitals: Temp Pulse Resp BP Pulse Ox 98.6 F 100 18 102/76 97 11/04/16 18:47 11/04/16 18:47 11/04/16 18:47 11/04/16 18:47 11/04/16 18:47 Interpretation: Normal Notes: PHYSICAL EXAMINATION: GENERAL: Well-appearing, well-nourished and in no acute distress. HEAD: Atraumatic, normocephalic. EYES: Pupils equal round and reactive to light, extraocular movements intact, sclera anicteric, conjunctiva are normal. ENT: nares patent, oropharynx clear without exudates. Moist mucous membranes. NECK: Normal range of motion, supple without lymphadenopathy LUNGS: Breath sounds clear to auscultation bilaterally and equal. No wheezes rales or rhonchi. HEART: Regular rate and rhythm without murmurs ABDOMEN: Soft, nontender, normoactive bowel sounds. No guarding, no rebound. No masses appreciated. EXTREMITIES: Normal range of motion, no pitting or edema. No cyanosis. NEUROLOGICAL: No focal neurological deficits. Moves all extremities spontaneously and on command. PSYCH: Poor eye contact, flat affect. SKIN: Warm, Dry, normal turgor, no rashes or lesions noted. Course - Re-evaluation Re-evalutation: 11/04/16 21:08 Patient presents with suicidal homicidal ideation. He was just discharged yesterday with the same complaint. However, concerning the patient is very closely stating "right now all can think about is going back there and stabbing that group work program director in the face with a knife". Continues to endorse suicidal ideation with a plan to use a gun although he admits he does not have one. Will monitor patient here in the emergency department tonight and have psychiatry see him again in the morning although again I anticipate that he will likely be discharged home given his history of presenting to the emergency department to get out of his long-term. However given the exquisite nature of his homicidal ideation I find it difficult to discharge him at this time. Medical screening exam and laboratories are unremarkable. - Vital Signs Vital signs: Temp Pulse Resp BP Pulse Ox 98.6 F 100 18 102/76 97 11/04/16 18:47 11/04/16 18:47 11/04/16 18:47 11/04/16 18:47 11/04/16 18:47 - Laboratory Result Diagrams: 11/04/16 19:56 11/04/16 19:56 Laboratory results interpreted by me: 11/04/16 11/04/16 19:05 19:56 Urine Protein 30 H Urine Bilirubin SMALL H Urine Urobilinogen 2.0 H Urine Ascorbic Acid 40 H Salicylates < 1.0 L Acetaminophen < 10 L - EKG Interpretation by Me Additional EKG results interpreted by me: 11/05/16 03:40 Normal sinus rhythm. Rate 75. No ST elevations or depressions. QTC is 385. Discharge - Discharge Clinical Impression: Schizoaffective disorder, bipolar type, Homicidal ideation Condition: Fair Disposition: PSYCH HOSP/UNIT
--- NOTE | 2016-11-04 22:51 | EKG REPORT ---
SEVERITY:- BORDERLINE ECG - SINUS RHYTHM BORDERLINE T ABNORMALITIES, INFERIOR LEADS : Confirmed by: Nata Price 04-Nov-2016 22:49:56
[2016-11-05] MEDS ORDERED: PSEUDOEPHEDRINE HCL 30 MG TABLET PO ONE (05:45)
--- NOTE | 2016-11-05 10:03 | ER Document Report ---
Doctor's Note Notes: 11/05/16 10:00 Patient resting comfortably on stretcher, he continues to report homicidal thoughts towards his father and then rambles on about "running with some killers " and how his father does not know or understand about this, states he spoke to his father yesterday but referred to him with obscenities my chart was reviewed including labs and vital signs, patient remained stable for transfer or discharge at this point in time, we will continue to monitor him in the emergency room until appropriate disposition can be arranged 11/05/16 11:36 Health team has spoken with staff at the shelter, who report that patient frequently makes verbal threats, however he has never physically active against himself or any staff member there, they do feel as though it is safe for him to return back to the shelter today, since patient is in a shelter environment where he can be watched 24 7, has no access to weapons, has never made any physical actions toward staff I feel it is safe for him to be discharged back to their care today Discharge - Discharge Clinical Impression: Schizoaffective disorder, bipolar type, Homicidal ideation, Suicidal ideation Condition: Fair Disposition: HOME, SELF-CARE Additional Instructions: DEPRESSION: Your evaluation reveals that you have mental depression. While symptoms may be vague, they often include disturbance of sleep, fatigue, loss of appetite , and general loss of interest in life. While depression may be a side effect of drugs, or a reaction to a major change in your life, many cases have no known cause. If depression is acute, and related to a major loss in your life, you can expect it to clear completely with time. If you have been depressed a long time , are prone to repeated bouts of depression or low mood, or have been thinking of suicide, get help. Depression can be treated with anti-depressant medication and counselling. Long-term depression will often take a few weeks to clear, even with appropriate medication. Follow-up care is important. SUICIDAL IDEATION: Suicidal ideation is a common medical term for thoughts about suicide, which may be as detailed as a formulated plan, without the suicidal act itself. Although most people who undergo suicidal ideation do not commit suicide, some go on to make suicide attempts. The range of suicidal ideation varies greatly from fleeting to detailed planning, role playing, and unsuccessful attempts. While thoughts about suicide are common, most people do not carry out serious actions to commit suicide. Based upon your evaluation and discussion with you, we do not believe you are currently at risk to act upon your thoughts of suicide. You have agreed to return to the Emergency Department, at any time , if you feel inclined to act upon your suicidal thoughts. HOMICIDAL IDEATION: Homicidal ideation is a common medical term for thoughts about homicide, which may be as detailed as a formulated plan, without the homicidal act itself. Although most people who undergo homicidal ideation do not commit homicide, some go on to make homicide attempts. The range of homicidal ideation varies greatly from fleeting to detailed planning, role playing, and unsuccessful attempts. While thoughts about homicide are common, most people do not carry out serious actions to commit homicide. Based upon your evaluation and discussion with you, we do not believe you are currently at risk to act upon your thoughts of homicide. You have agreed to return to the Emergency Department, at any time , if you feel inclined to act upon your homicidal thoughts. FOLLOW-UP CARE: You will return to the shelter, they will schedule a follow up appointment with your outpatient provider [facility] within 5-7 days. If you experience worsening or a significant change in your symptoms, notify the physician immediately or return to the Emergency Department at any time for re-evaluation. Referrals: [facility] [Outside] - Follow up as needed
--- NOTE | 2016-11-05 11:37 | ER Document Report ---
ED Psych Disorder / Suicide - General Chief Complaint: Suicidal Ideation Stated Complaint: PSYCH EVAL Time Seen by Provider: 11/04/16 19:28 Mode of Arrival: Ambulatory Information source: Patient, Parent, Legal Guardian, [facility] Records TRAVEL OUTSIDE OF THE [place] IN LAST 30 DAYS: No - HPI Patient complains to provider of: Hallucinating, Homicidal ideation, Suicidal ideation Suicide Risk Factors: Hallucinations, Male, Schizophrenia Situational problems related to: Other - issues with fdc staff and legal guardian who is father Normal mood: Yes - Baseline Associated symptoms: Depressed, Irritable Similar symptoms previously: Yes Recently seen / treated by doctor: Yes Notes: Conducted initial evaluation on 11/05/2016 at 0740. Patient is a 31 year old male who presented to the ED last evening from his [facility] for SI/HI. He reported staff at fdc being disrespectful and being upset with is father/ legal guardian. He stated he made statements because he was frustrated. He reported having auditory hallucination, racing thoughts, and flash backs. He talked about wanting to get a job and education. He identified he has been to 3- 4 group homes, he is from [place], and he wants to live with his mother and sister but his father/guardian won't allow it. His outpatient provider is [facility] and he is prescribed Zyprexa along with 2 other medications. he stated he asked for a Zyprexa injection at [facility] because he feels like the pill form is not as effective but was informed he has to take pills for so long first. He reported a history of Schizophrenia and how that has limited his options (jobs). He acknowledged previous hospitalizations, the most recent earlier this year at [facility]. Patient was alert and oriented. Mood was depressed and irritable with congruent affect AEB tearful a6t appropriate times. He remained calm and cooperative. He denied current SI/HI. He did not appear to be responding to internal stimuli AEB fair eye contact (which he said he was doing to be respectful), answering questions appropriately when addressed, and carrying on dialogue conversation, He endorsed hearing voices which he knew were not real but in the moment of hearing them it was hard to shut them out. Thought processes were linear and organized. Conversational speech was WNL for rate, tone and prosody. Intellectual abilities are estimated to be average (he noted having a GED). Insight, judgment and impulse control are fair AEB is linear and organized thinking and being easily directed when he was frustrated. Patient provided father/legal guardian contact information: Sabino Pena ([phone]). Father confirmed he has been guardian since about 2012 when he was asked by the court to do so. This was appointed by [facility] due to MH and being deemed incompetent. He denied patient ever taking action with respect to SI/HI and stated "this is what he does when he doesn't get his way." He mentioned patient having been in another fdc in [facility] providing services to patient there. He asked about a similar option for this location. Contacted Joanne Hutson ([phone]) at the fdc. She reported patient did not take action or try to get weapons when he made SI/HI threats. She stated he has been having multiple episodes. She noted father/legal guardian is supposed to be at appointments and does not attend. She stated patient can return and she would call [facility] for follow up appointment. Diagnosis: 295.70 (F25.0) Schizoaffective, Bipolar Type by History Impression/Plan: Patient is psychiatrically cleared for discharge. He does not meet [place] IVC criteria. He denied SI/HI, was able to process his feelings of frustration. endorsed auditory hallucinations however he has insight (knows they are not real) and did not appear to be in active psychosis while in the ED given his appropriate interactions and conversations. It appears patient has secondary gain to remove self from fdc and go live with mother/sister (this is not an option per father/legal guardian) given patient's numerous visits to the ED and father's report that patient threatens SI/HI (has never taken action) when he doesn't get his way. Coordinated with the fdc who will arrange follow up appointment with [facility]. Consulted with Dr. Willett regarding the management and care of patient. ED Physician in agreement with recommendations. - Related Data Allergies/Adverse Reactions: benztropine [From Cogentin] Allergy (Verified 11/04/16 19:10) divalproex sodium [From Depakote] Allergy (Verified 11/04/16 19:10) haloperidol [From Haldol] Allergy (Verified 11/04/16 19:10) risperidone [From Risperdal] Allergy (Verified 11/04/16 19:10) ziprasidone [From Geodon] Allergy (Verified 11/04/16 19:10) Past Medical History - General Information source: Patient - Social History Smoking Status: Current Every Day Smoker Chew tobacco use (# tins/day): No Frequency of alcohol use: None Drug Abuse: Marijuana Lives with: Other Family History: Reviewed & Not Pertinent Patient has suicidal ideation: Yes - shooting Patient has homicidal ideation: No Renal/ Medical History: Denies: Hx Peritoneal Dialysis Psychiatric Medical History: Reports: Hx Bipolar Disorder, Hx Depression, Hx Schizophrenia - Immunizations Hx Diphtheria, Pertussis, Tetanus Vaccination: Yes Physical Exam - Vital signs Vitals: Temp Pulse Resp BP Pulse Ox 98.6 F 100 18 102/76 97 11/04/16 18:47 11/04/16 18:47 11/04/16 18:47 11/04/16 18:47 11/04/16 18:47 Course - Vital Signs Vital signs: Temp Pulse Resp BP Pulse Ox 97 F L 75 16 139/85 H 99 11/05/16 12:00 11/05/16 12:00 11/05/16 12:00 11/05/16 12:00 11/05/16 12:00 - Laboratory Result Diagrams: 11/04/16 19:56 11/04/16 19:56 Laboratory results interpreted by me: 11/04/16 11/04/16 19:05 19:56 Urine Protein 30 H Urine Bilirubin SMALL H Urine Urobilinogen 2.0 H Urine Ascorbic Acid 40 H Salicylates < 1.0 L Acetaminophen < 10 L Discharge - Discharge Clinical Impression: Schizoaffective disorder, bipolar type, Homicidal ideation, Suicidal ideation Condition: Stable Disposition: HOME, SELF-CARE Additional Instructions: DEPRESSION: Your evaluation reveals that you have mental depression. While symptoms may be vague, they often include disturbance of sleep, fatigue, loss of appetite , and general loss of interest in life. While depression may be a side effect of drugs, or a reaction to a major change in your life, many cases have no known cause. If depression is acute, and related to a major loss in your life, you can expect it to clear completely with time. If you have been depressed a long time , are prone to repeated bouts of depression or low mood, or have been thinking of suicide, get help. Depression can be treated with anti-depressant medication and counselling. Long-term depression will often take a few weeks to clear, even with appropriate medication. Follow-up care is important. SUICIDAL IDEATION: Suicidal ideation is a common medical term for thoughts about suicide, which may be as detailed as a formulated plan, without the suicidal act itself. Although most people who undergo suicidal ideation do not commit suicide, some go on to make suicide attempts. The range of suicidal ideation varies greatly from fleeting to detailed planning, role playing, and unsuccessful attempts. While thoughts about suicide are common, most people do not carry out serious actions to commit suicide. Based upon your evaluation and discussion with you, we do not believe you are currently at risk to act upon your thoughts of suicide. You have agreed to return to the Emergency Department, at any time , if you feel inclined to act upon your suicidal thoughts. HOMICIDAL IDEATION: Homicidal ideation is a common medical term for thoughts about homicide, which may be as detailed as a formulated plan, without the homicidal act itself. Although most people who undergo homicidal ideation do not commit homicide, some go on to make homicide attempts. The range of homicidal ideation varies greatly from fleeting to detailed planning, role playing, and unsuccessful attempts. While thoughts about homicide are common, most people do not carry out serious actions to commit homicide. Based upon your evaluation and discussion with you, we do not believe you are currently at risk to act upon your thoughts of homicide. You have agreed to return to the Emergency Department, at any time , if you feel inclined to act upon your homicidal thoughts. FOLLOW-UP CARE: You will return to the fdc, they will schedule a follow up appointment with your outpatient provider [facility] within 3-5 days. If you experience worsening or a significant change in your symptoms, notify the physician immediately or return to the Emergency Department at any time for re-evaluation. Referrals: [facility] [Outside] - Follow up in 3-5 days
[2016-11-05 12:18] VITALS: BP 139/85
== END 2016-11-05 12:05 | disposition home or self-care (01) ==
LOC: ER 18:44
DX: F25.0 Schizoaffective disorder, bipolar type (principal); F31.9 Bipolar disorder, unspecified; R45.851 Suicidal ideations; R45.850 Homicidal ideations; F32.9 Major depressive disorder, single episode, unspecified; F17.200 Nicotine dependence, unspecified, uncomplicated
CPT/HCPCS: 93005; 99285; 36415; 80307 ×4; 85025; 80053; 81001; 93010; J3490

== ENCOUNTER 2016-11-18 13:55 | Emergency (ER) | payer OTHER ==
--- NOTE | 2016-11-18 14:33 | ER Document Report ---
ED Psych Disorder / Suicide - General TRAVEL OUTSIDE OF THE U.[place]. IN LAST 30 DAYS: No <GAETANO ROCHA - Last Filed: 11/18/16 14:45> <CADENCE MORENO - Last Filed: 11/18/16 17:04> - General Chief Complaint: Psych Problem Stated Complaint: IVC Time Seen by Provider: 11/18/16 14:05 Notes: The patient is a 31-year-old male, past medical history schizoaffective disorder , bipolar type, presents on an IVC from [facility] with law enforcement after he is having increased paranoia and persecutory delusions. He has called emergency services numerous times of the last several days due to believes that others are trying to harm him. He cannot contract for safety and was sent to the ER for in patient stabilization for safety. (GAETANO ROCHA) - HPI Notes: Patient disclosed that his father showed up to his therapeutic session unannounced and uninvited. He continued disclosed his father (who is legal guardian) was acting "cocky" like he knew something. Patient states that his father is a trigger for him. He continues states that he stepped outside to have a cigarette when his father started to become verbal with him stating that he had to hurry up and come in there. Patient states "it was like he was going to put his hands on me and I just lost it." Patient continued to confirm that he was "touching go when he first came into [facility] ED" because he was still so upset about his father. He stated he has requested his father not to show up on multiple occasions because it is his therapeutic time with his provider however he states "he said to me that he can show up anytime he wants." Patient was alert and oriented to person, place, time and circumstances. Mood was euthymic with congruent affect. He remained calm and cooperative during evaluation; once he first arrived to [facility] ED patient was agitated. He denied current suicidal and homicidal ideation. He did not appear to be responding to internal stimuli as evidenced by good eye contact, answering questions appropriately when addressed, and carrying on dialogue conversation, He endorsed hearing voices which he knew were not real but in the moment of hearing them it was hard to shut them out. Thought processes were linear and organized. Conversational speech was within normal range for rate, tone and prosody. Intellectual abilities are estimated to be average (he noted having a GED). Attention and concentration are good. Insight, judgment and impulse control are fair. Behavioral health team contacted patient's provider [facility], they disclosed patient 's father contacted them with concerns the patient was having increased and paranoia and aggression at the care home. Clinician contacted Bel Flor at [phone] supervisor screen printing of [facility] who disclosed that the patient has been showing an increase in aggression and agitation. Patient has been calling 911. She continued disclosed that sometimes he says he wants to kill himself and others and then when he gets to the emergency department he states that he only wants to get new placement he is not actually suicidal or homicidal. She continued to state that in the middle the night he will start cussing slamming doors and accusing women of trying to have sex with him. Diagnosis: 295.70 (F25.0) Schizoaffective, Bipolar Type by History Impression/Plan: (CADENCE MORENO) - Related Data Allergies/Adverse Reactions: benztropine [From Cogentin] Allergy (Verified 11/04/16 19:10) divalproex sodium [From Depakote] Allergy (Verified 11/04/16 19:10) haloperidol [From Haldol] Allergy (Verified 11/04/16 19:10) risperidone [From Risperdal] Allergy (Verified 11/04/16 19:10) ziprasidone [From Geodon] Allergy (Verified 11/04/16 19:10) Past Medical History - General Information source: Patient - Social History Smoking Status: Current Every Day Smoker Family History: Reviewed & Not Pertinent Renal/ Medical History: Denies: Hx Peritoneal Dialysis Psychiatric Medical History: Reports: Hx Bipolar Disorder, Hx Depression, Hx Schizophrenia - Immunizations Hx Diphtheria, Pertussis, Tetanus Vaccination: Yes <GAETANO ROCHA - Last Filed: 11/18/16 14:45> Review of Systems <GAETANO ROCHA - Last Filed: 11/18/16 14:45> <CADENCE MORENO - Last Filed: 11/18/16 17:04> - Review of Systems Notes: REVIEW OF SYSTEMS: CONSTITUTIONAL: -fevers, -chills EENT: -eye pain, -difficulty swallowing, -nasal congestion CARDIOVASCULAR:-chest pain, -syncope. RESPIRATORY: -cough, -SOB GASTROINTESTINAL: -abdominal pain, -nausea, -vomiting, -diarrhea GENITOURINARY: -dysuria, -hematuria MUSCULOSKELETAL: -back pain, -neck pain SKIN: -rash or skin lesions. HEMATOLOGIC: -easy bruising or bleeding. LYMPHATIC: -swollen, enlarged glands. NEUROLOGICAL: -altered mental status or loss of consciousness, -headache, - neurologic symptoms PSYCHIATRIC: +paranoia ALL OTHER SYSTEMS REVIEWED AND NEGATIVE. (GAETANO ROCHA) Physical Exam <GAETANO ROCHA - Last Filed: 11/18/16 14:45> <CADENCE MORENO - Last Filed: 11/18/16 17:04> - Vital signs Vitals: Temp Pulse Resp BP Pulse Ox 97.5 F 68 18 114/67 98 11/18/16 14:23 11/18/16 14:23 11/18/16 14:23 11/18/16 14:23 11/18/16 14:23 - Notes Notes: PHYSICAL EXAMINATION: GENERAL: Well-appearing, well-nourished and in no acute distress. HEAD: Atraumatic, normocephalic. EYES: Pupils equal round and reactive to light, extraocular movements intact, sclera anicteric, conjunctiva are normal. ENT: nares patent, oropharynx clear without exudates. Moist mucous membranes. NECK: Normal range of motion, supple without lymphadenopathy LUNGS: Breath sounds clear to auscultation bilaterally and equal. No wheezes rales or rhonchi. HEART: Regular rate and rhythm without murmurs ABDOMEN: Soft, nontender, normoactive bowel sounds. No guarding, no rebound. No masses appreciated. EXTREMITIES: Normal range of motion, no pitting or edema. No cyanosis. NEUROLOGICAL: Cranial nerves grossly intact. Normal speech, normal gait. Normal sensory and motor exams. PSYCH: Normal mood, normal affect. SKIN: Warm, Dry, normal turgor, no rashes or lesions noted. (GAETANO ROCHA) Course - Laboratory Result Diagrams: 11/18/16 14:25 11/18/16 14:25 - EKG Interpretation by [facility] EKG shows normal: Sinus rhythm, [place], Intervals, QRS Complexes, ST-T Waves Rate: Normal <GAETANO ROCHA - Last Filed: 11/18/16 14:45> - Laboratory Result Diagrams: 11/18/16 14:25 11/18/16 14:25 <CADENCE MORENO - Last Filed: 11/18/16 17:04> - Re-evaluation Re-evalutation: 11/18/16 14:45 Pt has no medical reason for his paranoia. He will be evaluated by mental health for further recommendations. (GAETANO ROCHA) - Vital Signs Vital signs: Temp Pulse Resp BP Pulse Ox 97.5 F 68 18 114/67 98 11/18/16 14:23 11/18/16 14:23 11/18/16 14:23 11/18/16 14:23 11/18/16 14:23 - Laboratory Laboratory results interpreted by me: 11/18/16 14:25 Salicylates < 1.0 L Acetaminophen < 10 L Discharge <GAETANO ROCHA - Last Filed: 11/18/16 14:45> <CADENCE MORENO - Last Filed: 11/18/16 17:04> - Discharge Clinical Impression: Paranoia Condition: Stable Disposition: PSYCH HOSP/UNIT
[2016-11-18 14:37] LABS: ABSOLUTE EOSINOPHILS # (AUTO) 0.2 10^3/uL (0.0-0.6); ABSOLUTE LYMPHOCYTES (AUTO) 2.6 10^3/uL (0.5-4.7); ABSOLUTE MONOCYTES (AUTO) 0.5 10^3/uL (0.1-1.4); ABSOLUTE NEUT (AUTO) 4.9 10^3/uL (1.7-8.2); BASOPHILS % (AUTO) 0.4 % (0-2); EOSINOPHILS % (AUTO) 2.9 % (0-6); HEMOGLOBIN 14.6 g/dL (13.5-17.0); HGB HCT DIFFERENCE 1.8; LYMPHOCYTES % (AUTO) 31.2 % (13-45); MEAN CORPUSCULAR HEMOGLOBIN 31.9 pg (27.0-33.4); MEAN CORPUSCULAR HGB CONC 34.7 g/dL (32.0-36.0); MEAN CORPUSCULAR VOLUME 92 fl (80-97); MONOCYTES % (AUTO) 6.4 % (3-13); RED BLOOD COUNT 4.57 10^6/uL (4.35-5.55); RED CELL DISTRIBUTION WIDTH 13.4 % (11.5-14.0); SEGMENTED NEUTROPHILS % (AUTO) 59.1 % (42-78); WHITE BLOOD COUNT 8.3 10^3/uL (4.0-10.5)
[2016-11-18 14:54] LABS: ALANINE AMINOTRANSFERASE 38 U/L (21-72); ALBUMIN 4.3 g/dL (3.5-5.0); ALKALINE PHOSPHATASE 103 U/L (38-126); ANION GAP 11 (5-19); ASPARTATE AMINO TRANSFERASE 25 U/L (17-59); BILIRUBIN,DIRECT 0.3 mg/dL (0.0-0.4); BILIRUBIN,TOTAL 0.3 mg/dL (0.2-1.3); BLOOD UREA NITROGEN 13 mg/dL (7-20); CALCIUM 9.3 mg/dL (8.4-10.2); CARBON DIOXIDE 24 mmol/L (22-30); CHLORIDE 105 mmol/L (98-107); GLUCOSE 95 mg/dL (75-110); POTASSIUM 4.2 mmol/L (3.6-5.0); SODIUM 139.5 mmol/L (137-145); TOTAL PROTEIN 7.4 g/dL (6.3-8.2)
[2016-11-18 14:59] LABS: ALCOHOL < 10 mg/dL (NONE DETECTED)
[2016-11-18 15:45] LABS: APPEARANCE,URINE SLIGHTLY-CLOUDY; BILIRUBIN,URINE NEGATIVE (NEGATIVE); GLUCOSE, URINE NEGATIVE (NEGATIVE); KETONES,URINE NEGATIVE (NEGATIVE); LEUKOCYTE ESTERASE,URINE NEGATIVE (NEGATIVE); NITRITE,URINE NEGATIVE (NEGATIVE); PROTEIN,URINE NEGATIVE (NEGATIVE); URINE SPECIFIC GRAVITY 1.019; UROBILINOGEN,URINE NEGATIVE mg/dL (<2.0)
[2016-11-18 16:05] LABS: URINE BARBITURATES SCREEN NEGATIVE; URINE METHADONE SCREEN NEGATIVE; URINE OPIATES LOW NEGATIVE; URINE PHENCYCLIDINE SCREEN NEGATIVE
[2016-11-18] MEDS: OLANZAPINE 5 MG TABLET PO SCH (18:02)
[2016-11-18] MEDS: CARBAMAZEPINE 200 MG TABLET PO SCH (18:02)
[2016-11-18] MEDS ORDERED: NICOTINE 21 MG/24 HR PATCH.TD24 TD ONE (18:17)
--- NOTE | 2016-11-18 21:19 | EKG REPORT ---
SEVERITY:- BORDERLINE ECG - SINUS RHYTHM BORDERLINE T ABNORMALITIES, INFERIOR LEADS : Confirmed by: Pam Sarah MD 18-Nov-2016 21:19:39
--- NOTE | 2016-11-19 10:15 | ER Document Report ---
Doctor's Note Notes: 11/19/16 10:14 Patient awake and alert, speaking with security consultant as I entered the room, he is calm, cooperative and pleasant, states he has a job interview at [employer] at [employer] this afternoon, his vocational wellness health coach will be taking him to this interview, he requests that he be discharged in time to make it to this interview, mental health team has contacted patient's guardian, his father who is in agreement with this plan, labs and vital signs are stable and patient is medically cleared for discharge Discharge - Discharge Clinical Impression: Paranoia, Schizoaffective disorder, bipolar type Condition: Stable Disposition: HOME, SELF-CARE Additional Instructions: You have received medication and changes which include keeping Tegretol at 200 mg twice daily, reducing Zyprexa to 10 mg twice daily and discontinue taking Seroquel. Please follow-up with your outpatient mental health treatment with [facility] in 3-5 days. AT ANY TIME, IF YOUR SYMPTOMS CHANGE SIGNIFICANTLY OR WORSEN OR YOU DEVELOP NEW SYMPTOMS, RETURN TO THE EMERGENCY DEPARTMENT IMMEDIATELY FOR RE-EVALUATION. OUR GOAL IS TO PROVIDE EXCELLENT MEDICAL CARE! WE HOPE THAT WE HAVE MET YOUR EXPECTATIONS DURING YOUR EMERGENCY DEPARTMENT VISIT AND THAT YOU FEEL YOU HAVE RECEIVED EXCELLENT CARE! Referrals: [facility] [Outside] - Follow up in 3-5 days
[2016-11-19] MEDS: OLANZAPINE 5 MG TABLET PO SCH (10:30)
[2016-11-19] MEDS: CARBAMAZEPINE 200 MG TABLET PO SCH (10:30)
[2016-11-19 13:21] VITALS: BP 120/87
== END 2016-11-19 11:50 | disposition home or self-care (01) ==
LOC: ER 13:55
DX: F25.0 Schizoaffective disorder, bipolar type (principal); F22 Delusional disorders; F17.200 Nicotine dependence, unspecified, uncomplicated
CPT/HCPCS: 93005; 36415; 80307 ×4; 85025; 80053; 81001; 93010; J3490 ×5

== ENCOUNTER 2016-12-02 21:17 | Emergency (ER) | payer MEDICAID, OTHER ==
[2016-12-02 21:55] LABS: APPEARANCE,URINE CLEAR; BILIRUBIN,URINE NEGATIVE (NEGATIVE); GLUCOSE, URINE NEGATIVE (NEGATIVE); KETONES,URINE NEGATIVE (NEGATIVE); LEUKOCYTE ESTERASE,URINE NEGATIVE (NEGATIVE); NITRITE,URINE NEGATIVE (NEGATIVE); PROTEIN,URINE NEGATIVE (NEGATIVE); URINE SPECIFIC GRAVITY 1.005; UROBILINOGEN,URINE NEGATIVE mg/dL (<2.0)
[2016-12-02 22:00] LABS: ABSOLUTE BASOPHILS # (AUTO) 0.1 10^3/uL (0.0-0.2); ABSOLUTE EOSINOPHILS # (AUTO) 0.6 10^3/uL (0.0-0.6); ABSOLUTE LYMPHOCYTES (AUTO) 3.2 10^3/uL (0.5-4.7); ABSOLUTE MONOCYTES (AUTO) 0.8 10^3/uL (0.1-1.4); ABSOLUTE NEUT (AUTO) 5.8 10^3/uL (1.7-8.2); BASOPHILS % (AUTO) 0.6 % (0-2); EOSINOPHILS % (AUTO) 5.8 % (0-6); HEMATOCRIT 43.4 % (37.9-51.0); HGB HCT DIFFERENCE 1.6; LYMPHOCYTES % (AUTO) 30.5 % (13-45); MEAN CORPUSCULAR HEMOGLOBIN 32.5 pg (27.0-33.4); MEAN CORPUSCULAR HGB CONC 34.6 g/dL (32.0-36.0); MEAN CORPUSCULAR VOLUME 94 fl (80-97); MONOCYTES % (AUTO) 7.8 % (3-13); RED BLOOD COUNT 4.62 10^6/uL (4.35-5.55); SEGMENTED NEUTROPHILS % (AUTO) 55.3 % (42-78); WHITE BLOOD COUNT 10.6 10^3/uL (4.0-10.5)
[2016-12-02 22:08] LABS: ALANINE AMINOTRANSFERASE 48 U/L (21-72); ALBUMIN 4.9 g/dL (3.5-5.0); ALKALINE PHOSPHATASE 104 U/L (38-126); ANION GAP 15 (5-19); ASPARTATE AMINO TRANSFERASE 29 U/L (17-59); BILIRUBIN,DIRECT 0.4 mg/dL (0.0-0.4); BILIRUBIN,TOTAL 0.4 mg/dL (0.2-1.3); BLOOD UREA NITROGEN 14 mg/dL (7-20); CALCIUM 10.2 mg/dL (8.4-10.2); CARBON DIOXIDE 23 mmol/L (22-30); CHLORIDE 103 mmol/L (98-107); CREATININE RESULT 1.02 mg/dL (0.52-1.25); GLUCOSE 90 mg/dL (75-110); POTASSIUM 4.3 mmol/L (3.6-5.0); SODIUM 140.7 mmol/L (137-145); TOTAL PROTEIN 8.1 g/dL (6.3-8.2)
[2016-12-02 22:09] LABS: ALCOHOL < 10 mg/dL (NONE DETECTED)
[2016-12-02 22:22] LABS: URINE BARBITURATES SCREEN NEGATIVE; URINE METHADONE SCREEN NEGATIVE; URINE OPIATES LOW NEGATIVE; URINE PHENCYCLIDINE SCREEN NEGATIVE
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
--- NOTE | 2016-12-03 08:06 | EKG REPORT ---
SEVERITY:- BORDERLINE ECG - SINUS RHYTHM BORDERLINE T ABNORMALITIES, INFERIOR LEADS : Confirmed by: Aaron Mcneill MD 03-Dec-2016 08:06:13
--- NOTE | 2016-12-03 11:29 | ER Document Report ---
Doctor's Note Notes: 12/03/16 11:29 This is a 31-year-old man that presented to the emergency room with passive suicidal ideations because he was mad at the correction. His vital signs and labs have been stable. He has been evaluated by psychology team and cleared for discharge.
[2016-12-03 12:44] VITALS: BP 125/89
== END 2016-12-03 12:44 | disposition home or self-care (01) ==
LOC: ER 21:17
DX: R45.851 Suicidal ideations (principal); R45.850 Homicidal ideations; F25.0 Schizoaffective disorder, bipolar type
CPT/HCPCS: 36415; 80053; 80307; 81001; 85025; 93005; 93010; 99284

== ENCOUNTER 2016-12-07 20:13 | Emergency (ER) | payer MEDICAID ==
[2016-12-07] MEDS ORDERED: ACETAMINOPHEN 325 MG TABLET PO ONE (20:49)
[2016-12-07] MEDS ORDERED: MECLIZINE HCL 25 MG TABLET PO ONE (20:55)
--- NOTE | 2016-12-07 21:02 | ER Document Report ---
ED Headache - General Mode of Arrival: Ambulatory Information source: Patient TRAVEL OUTSIDE OF THE [place] IN LAST 30 DAYS: No - HPI Patient complains to provider of: Headache, "Migraine" Patient reports: Hx chronic headaches <KAREN GRIFFIN - Last Filed: 12/07/16 22:40> <LINDY JAY - Last Filed: 12/07/16 23:41> - General Chief Complaint: Headache >24 hrs old Stated Complaint: HEADACHE Time Seen by Provider: 12/07/16 20:44 Notes: Patient is a 31 year old male that presents to the emergency department today with complaints of a migraine headache. Patient has a history of headaches and he states his headache today is similar to his previous headaches. Patient states he has had nasal congestion and he feels like his ears are "plugged up". Patient states that he gets dizzy with rapid head movements. (KAREN GRIFFIN) - Related Data Allergies/Adverse Reactions: benztropine [From Cogentin] Allergy (Verified 11/04/16 19:10) divalproex sodium [From Depakote] Allergy (Verified 11/04/16 19:10) haloperidol [From Haldol] Allergy (Verified 11/04/16 19:10) risperidone [From Risperdal] Allergy (Verified 11/04/16 19:10) ziprasidone [From Geodon] Allergy (Verified 11/04/16 19:10) Past Medical History - Social History Family History: Reviewed & Not Pertinent Renal/ Medical History: Denies: Hx Peritoneal Dialysis Psychiatric Medical History: Reports: Hx Bipolar Disorder, Hx Depression, Hx Schizophrenia - Immunizations Hx Diphtheria, Pertussis, Tetanus Vaccination: Yes <KAREN GRIFFIN - Last Filed: 12/07/16 22:40> - Social History Smoking Status: Unknown if Ever Smoked <LINDY JAY - Last Filed: 12/07/16 23:41> Physical Exam <KAREN GRIFFIN - Last Filed: 12/07/16 22:40> <LINDY JAY - Last Filed: 12/07/16 23:41> - Vital signs Vitals: Temp Pulse BP Pulse Ox 98.3 F 84 133/76 H 97 12/07/16 20:22 12/07/16 20:22 12/07/16 20:22 12/07/16 20:22 - Notes Notes: Physical Exam: General: Alert, appears well. HEENT: Normocephalic. Atraumatic. PERRL. Extraocular movements intact. Oropharynx clear. Complains of dizziness with rapid head movement. Neck: Supple. Non-tender. Respiratory: No respiratory distress. Clear and equal breath sounds bilaterally. Cardiovascular: Regular rate and rhythm. Abdominal: Normal Inspection. Non-tender. No distension. Normal Bowel Sounds. Back: Non-tender. No deformity or step off. Extremities: Moves all four extremities. Upper extremities: Normal inspection. Normal ROM. Lower extremities: Normal inspection. No edema. Normal ROM. Neurological: Normal cognition. AAOx4. Normal speech. Psychological: Odd affect. Normal Mood. Skin: Warm. Dry. Normal color. (KAREN GRIFFIN) Course <KAREN GRIFFIN - Last Filed: 12/07/16 22:40> <LINDY JAY - Last Filed: 12/07/16 23:41> - Re-evaluation Re-evalutation: 12/07/16 23:40 Patient feels better after Tylenol and meclizine. Patient also complained of left ankle pain. Left lateral malleolus is tender to palpation. Patient has good range of motion of his ankle. No acute findings on x-ray. No evidence for infection or gout. Patient will be discharged back to his assisted. Stable at time of discharge. (LINDY JAY) - Vital Signs Vital signs: Temp Pulse Resp BP Pulse Ox 98.3 F 84 133/76 H 97 12/07/16 20:22 12/07/16 20:22 12/07/16 20:22 12/07/16 20:22 Discharge <KAREN GRIFFIN - Last Filed: 12/07/16 22:40> <LINDY JAY - Last Filed: 12/07/16 23:41> - Discharge Clinical Impression: Headache Qualifiers: Headache type: unspecified Headache chronicity pattern: unspecified pattern Intractability: not intractable Qualified Code(s): R51 - Headache Ankle pain Qualifiers: Chronicity: chronic Laterality: left Qualified Code(s): M25.572 - Pain in left ankle and joints of left foot; G89.29 - Other chronic pain; G89.29 - Other chronic pain Condition: Stable Referrals: ASTON BACA MD [Primary Care Provider] - Follow up as needed Scribe Attestation: 12/07/16 23:40 I personally performed the services described in the documentation, reviewed and edited the documentation which was dictated to the scribe in my presence, and it accurately records my words and actions. (LINDY JAY) Scribe Documentation - Scribe Written by Peggye:: Reginald Smith, 12/07/2016 2154 acting as scribe for :: Simon <KAREN GRIFFIN - Last Filed: 12/07/16 22:40>
--- NOTE | 2016-12-07 21:59 | RADIOLOGY REPORT (SQ) ---
EXAM DESCRIPTION: ANKLE LEFT COMPLETE COMPLETED DATE/TIME: 12/07/2016 9:25 pm REASON FOR STUDY: pain COMPARISON: None. NUMBER OF VIEWS: Three views. TECHNIQUE: AP, lateral, and oblique radiographic images acquired of the left ankle. LIMITATIONS: None. FINDINGS: MINERALIZATION: Normal. BONES: No acute fracture or dislocation. No worrisome bone lesions. JOINTS: No effusions. SOFT TISSUES: No soft tissue swelling. No foreign body. OTHER: No other significant finding. IMPRESSION: NO RADIOGRAPHIC EVIDENCE OF ACUTE INJURY. TECHNICAL DOCUMENTATION: JOB ID: [id number] [employer]- All Rights Reserved
[2016-12-07] MEDS ORDERED: IBUPROFEN 800 MG TABLET PO ONE (22:49)
[2016-12-07 23:48] VITALS: BP 121/75
== END 2016-12-07 23:47 | disposition home or self-care (01) ==
LOC: ER 20:13
DX: M25.572 Pain in left ankle and joints of left foot (principal); R51 Headache; R09.81 Nasal congestion; R42 Dizziness and giddiness; G89.29 Other chronic pain
CPT/HCPCS: 99284; 73610; J3490 ×2

== ENCOUNTER 2017-02-06 20:47 | Emergency (ER) | payer MEDICAID, OTHER ==
--- NOTE | 2017-02-06 21:45 | ER Document Report ---
HPI - HPI Patient complains to provider of: dizzy Onset: This evening - 6 pm Pain Level: 5 Context: 32 yo tobacco bipolar smoker male came in by EMS do to "my head, stomach, stiffness in muscles" trying to go to sleep, tossing and turning, got up and felt like he wanted to go for a jog-to work out, bubbles in stomach, sensation of bubbles in my head, feels dizzy now like head is spinning and twisting, early saity with food today, gris mouth, constipated, stiffness in all muscles. No fever, nausea, no vomiting, no diarrhea, no pain anywhere. Negative PMH, no surgeries. States detoxing on my own from beer, alcohol( lest 1 month ago) , marijuana (last 1 month ago). [facility]- for his bipolar. PCP: Dr. Baer- checkups. Was hospitalized in [place] until 2 days ago for psych reasons- there for a week or two, medications changes, filled some prescriptions today. group therapist Amaris Flor phone #[phone]. Pt was asleep in the room, and is now yawning during the exam. Amaris roblero took his night meds just prior to him complaining of lightheaded like he was going to pass out. Associated Symptoms: None Exacerbated by: Denies Relieved by: Denies Similar symptoms previously: No - ROS ROS below otherwise negative: Yes Systems Reviewed and Negative: Yes All other systems reviewed and negative Past Medical History - General Information source: Patient, Friend - amaris flor - Social History Smoking Status: Current Every Day Smoker Cigarette use (# per day): No Chew tobacco use (# tins/day): No Frequency of alcohol use: None Drug Abuse: None Lives with: Family Family History: Reviewed & Not Pertinent Renal/ Medical History: Denies: Hx Peritoneal Dialysis Psychiatric Medical History: Reports: Hx Bipolar Disorder, Hx Depression, Hx Schizophrenia Surgical Hx: Negative - Immunizations Hx Diphtheria, Pertussis, Tetanus Vaccination: Yes Vertical Provider Document - CONSTITUTIONAL Agree With Documented VS: Yes Exam Limitations: No Limitations General Appearance: No Apparent Distress - INFECTION CONTROL TRAVEL OUTSIDE OF THE [place] IN LAST 30 DAYS: No - HEENT HEENT: Atraumatic, Normal ENT Exam - NECK Neck: Supple. negative: Lymphadenopathy-Left, Lymphadenopathy-Right - RESPIRATORY Respiratory: Breath Sounds Normal, No Respiratory Distress O2 Sat by Pulse Oximetry: 97 - CARDIOVASCULAR Cardiovascular: Regular Rate, Regular Rhythm - GI/ABDOMEN Gastrointestinal: Abdomen Soft, Abdomen Non-Tender, No Organomegaly, Normal Bowel Sounds - BACK Back: Normal Inspection - MUSCULOSKELETAL/EXTREMETIES Musculoskeletal/Extremeties: MAEW, FROM, Non-Tender - NEURO Level of Consciousness: Awake, Alert, Appropriate Motor/Sensory: No Motor Deficit, No Sensory Deficit Notes: gait stable - DERM Integumentary: Warm, Dry Course - Re-evaluation Re-evalutation: 02/06/17 23:49 Patient got a liter of fluid his vital signs are stable he feels better and he ate and drank some food/fluids. No more symptoms/. Labs normal, ekg NSR no change from old EKG. 02/06/17 23:51 pt asking for cab ride home. I try to call Amaris back to see if they could facilitate him getting back to the shelter and she is not answering the phone I left a message on the phone 02/06/17 23:52 - Vital Signs Vital signs: Temp Pulse Resp BP Pulse Ox 98.3 F 63 14 117/69 97 02/06/17 20:57 02/06/17 20:57 02/06/17 20:57 02/06/17 20:57 02/06/17 20:57 - Laboratory Result Diagrams: 02/06/17 22:20 02/06/17 22:20 Discharge - Discharge Clinical Impression: Episode of dizziness Condition: Good Disposition: HOME, SELF-CARE Instructions: Dizziness ([facility]) Additional Instructions: drink plenty of water daily to er any concerns Referrals: ASTON BAER MD [ACTIVE STAFF] - Follow up as needed
[2017-02-06] MEDS ORDERED: NORMAL SALINE 1000 ML 1,000 ML IV ONE (21:55)
[2017-02-06 22:39] LABS: ABSOLUTE BASOPHILS # (AUTO) 0.1 10^3/uL (0.0-0.2); ABSOLUTE EOSINOPHILS # (AUTO) 0.4 10^3/uL (0.0-0.6); ABSOLUTE MONOCYTES (AUTO) 1.1 10^3/uL (0.1-1.4); ABSOLUTE NEUT (AUTO) 4.8 10^3/uL (1.7-8.2); BASOPHILS % (AUTO) 0.7 % (0-2); EOSINOPHILS % (AUTO) 4.1 % (0-6); HEMATOCRIT 41.7 % (37.9-51.0); HEMOGLOBIN 14.4 g/dL (13.5-17.0); HGB HCT DIFFERENCE 1.5; LYMPHOCYTES % (AUTO) 31.9 % (13-45); MEAN CORPUSCULAR HEMOGLOBIN 31.8 pg (27.0-33.4); MEAN CORPUSCULAR HGB CONC 34.6 g/dL (32.0-36.0); MEAN CORPUSCULAR VOLUME 92 fl (80-97); MONOCYTES % (AUTO) 11.7 % (3-13); RED BLOOD COUNT 4.53 10^6/uL (4.35-5.55); RED CELL DISTRIBUTION WIDTH 12.8 % (11.5-14.0); SEGMENTED NEUTROPHILS % (AUTO) 51.6 % (42-78); WHITE BLOOD COUNT 9.3 10^3/uL (4.0-10.5)
[2017-02-06 22:49] LABS: ALANINE AMINOTRANSFERASE 44 U/L (21-72); ALBUMIN 4.3 g/dL (3.5-5.0); ALKALINE PHOSPHATASE 97 U/L (38-126); ANION GAP 13 (5-19); ASPARTATE AMINO TRANSFERASE 22 U/L (17-59); BILIRUBIN,DIRECT 0.2 mg/dL (0.0-0.4); BILIRUBIN,TOTAL 0.3 mg/dL (0.2-1.3); BLOOD UREA NITROGEN 10 mg/dL (7-20); CALCIUM 9.1 mg/dL (8.4-10.2); CARBON DIOXIDE 25 mmol/L (22-30); CHLORIDE 103 mmol/L (98-107); GLUCOSE 113 mg/dL (75-110); POTASSIUM 3.9 mmol/L (3.6-5.0); SODIUM 140.9 mmol/L (137-145); TOTAL PROTEIN 6.9 g/dL (6.3-8.2)
--- NOTE | 2017-02-06 23:09 | EKG REPORT ---
SEVERITY:- ABNORMAL ECG - SINUS RHYTHM NONSPECIFIC T ABNORMALITIES, INFERIOR LEADS : Confirmed by: Nata Price 06-Feb-2017 23:08:18
[2017-02-06 23:50] VITALS: BP 111/57
== END 2017-02-07 00:20 | disposition home or self-care (01) ==
LOC: ER 20:47
DX: R42 Dizziness and giddiness (principal); K59.00 Constipation, unspecified; R29.898 Other symptoms and signs involving the musculoskeletal system; F31.9 Bipolar disorder, unspecified; F17.200 Nicotine dependence, unspecified, uncomplicated
CPT/HCPCS: 93005; 99284; 96360; 36415; 85025; 80053; 93010; J7030

== ENCOUNTER 2017-04-24 21:23 | Emergency (ER) | payer MEDICAID ==
[2017-04-24 21:58] LABS: ABSOLUTE BASOPHILS # (AUTO) 0.1 10^3/uL (0.0-0.2); ABSOLUTE EOSINOPHILS # (AUTO) 0.1 10^3/uL (0.0-0.6); ABSOLUTE LYMPHOCYTES (AUTO) 3.5 10^3/uL (0.5-4.7); ABSOLUTE NEUT (AUTO) 4.7 10^3/uL (1.7-8.2); BASOPHILS % (AUTO) 0.7 % (0-2); EOSINOPHILS % (AUTO) 1.2 % (0-6); HEMATOCRIT 39.2 % (37.9-51.0); HEMOGLOBIN 13.2 g/dL (13.5-17.0); LYMPHOCYTES % (AUTO) 37.5 % (13-45); MEAN CORPUSCULAR HEMOGLOBIN 31.1 pg (27.0-33.4); MEAN CORPUSCULAR HGB CONC 33.7 g/dL (32.0-36.0); MEAN CORPUSCULAR VOLUME 92 fl (80-97); MONOCYTES % (AUTO) 10.4 % (3-13); PLATELET COUNT 332 10^3/uL (150-450); RED BLOOD COUNT 4.24 10^6/uL (4.35-5.55); RED CELL DISTRIBUTION WIDTH 13.2 % (11.5-14.0); SEGMENTED NEUTROPHILS % (AUTO) 50.2 % (42-78); TOTAL CELLS COUNTED % (AUTO) 100 %; WHITE BLOOD COUNT 9.4 10^3/uL (4.0-10.5)
[2017-04-24 22:09] LABS: ALANINE AMINOTRANSFERASE 42 U/L (21-72); ALBUMIN 4.3 g/dL (3.5-5.0); ALKALINE PHOSPHATASE 75 U/L (38-126); ANION GAP 8 (5-19); ASPARTATE AMINO TRANSFERASE 29 U/L (17-59); BILIRUBIN,DIRECT 0.3 mg/dL (0.0-0.4); BILIRUBIN,TOTAL 0.3 mg/dL (0.2-1.3); BLOOD UREA NITROGEN 12 mg/dL (7-20); CALCIUM 9.3 mg/dL (8.4-10.2); CARBON DIOXIDE 24 mmol/L (22-30); CHLORIDE 105 mmol/L (98-107); GLUCOSE 107 mg/dL (75-110); POTASSIUM 3.9 mmol/L (3.6-5.0); SODIUM 137.4 mmol/L (137-145)
--- NOTE | 2017-04-24 22:13 | ER Document Report ---
ED General - General Chief Complaint: Suicidal Ideation Stated Complaint: SUICIDAL IDEATION Time Seen by Provider: 04/24/17 21:31 Cannot obtain history due to: Mentally challenged, Intoxicated Notes: Patient is a 32-year-old male with a past medical history of schizophrenia, currently off all medications who presents with passive suicidal ideation as well as alcohol intoxication per his report. Patient states that he has been drinking and using marijuana today. He states that he has been having increasingly pervasive thoughts of suicidal ideation but does not have a specific plan. He notes a history of prior suicide attempts via superficial lacerations to his wrists. He states that he is supposed be on medication for schizophrenia but he does not recall the name and states he stopped taking at least 3-4 weeks ago. He states he did so because he did not like it was helping his symptoms. Nothing has improved or worsened his suicidality per his report. He denies any acute medical complaints. He has not seen his primary psychiatric provider regarding today's concerns. TRAVEL OUTSIDE OF THE [place] IN LAST 30 DAYS: No - Related Data Allergies/Adverse Reactions: benztropine [From Cogentin] Allergy (Verified 11/04/16 19:10) divalproex sodium [From Depakote] Allergy (Verified 11/04/16 19:10) risperidone [From Risperdal] Allergy (Verified 11/04/16 19:10) ziprasidone [From Geodon] Allergy (Verified 11/04/16 19:10) Past Medical History - General Information source: Patient - Social History Smoking Status: Current Every Day Smoker Frequency of alcohol use: Heavy Drug Abuse: Other Lives with: Friend Family History: Reviewed & Not Pertinent Patient has suicidal ideation: Yes Patient has homicidal ideation: No Renal/ Medical History: Denies: Hx Peritoneal Dialysis Psychiatric Medical History: Reports: Hx Bipolar Disorder, Hx Depression, Hx Schizophrenia - Immunizations Hx Diphtheria, Pertussis, Tetanus Vaccination: Yes Review of Systems - Review of Systems Notes: Constitutional: Negative for fever. HENT: Negative for sore throat. Eyes: Negative for visual changes. Cardiovascular: Negative for chest pain. Respiratory: Negative for shortness of breath. Gastrointestinal: Negative for abdominal pain, vomiting or diarrhea. Genitourinary: Negative for dysuria. Musculoskeletal: Negative for back pain. Skin: Negative for rash. Neurological: Negative for headaches, weakness or numbness. 10 point ROS negative except as marked above and in HPI. Physical Exam - Vital signs Interpretation: Normal Notes: PHYSICAL EXAMINATION: GENERAL: Well-appearing, well-nourished and in no acute distress. HEAD: Atraumatic, normocephalic. EYES: Pupils equal round and reactive to light, extraocular movements intact, sclera anicteric, conjunctiva are normal. ENT: nares patent, oropharynx clear without exudates. Moist mucous membranes. NECK: Normal range of motion, supple without lymphadenopathy LUNGS: Breath sounds clear to auscultation bilaterally and equal. No wheezes rales or rhonchi. HEART: Regular rate and rhythm without murmurs ABDOMEN: Soft, nontender, normoactive bowel sounds. No guarding, no rebound. No masses appreciated. EXTREMITIES: Normal range of motion, no pitting or edema. No cyanosis. NEUROLOGICAL: No focal neurological deficits. Moves all extremities spontaneously and on command. PSYCH: Appears to be somewhat intoxicated, poor eye contact, intermittently stares off. SKIN: Warm, Dry, normal turgor, no rashes or lesions noted. Course - Re-evaluation Re-evalutation: 04/24/17 22:11 Patient presents with passive suicidal ideation no specific plan although does admit access to a firearm. He does not list the firearm is a plan means of completion. He is intoxicated, admits to heavy use of marijuana as well today. He seems to be trailing off during history taking, staring off of the wall and then coming back to talk more in a relatively clear fashion. He does admit to a history of schizophrenia and has been off all medications for at least 3-4 weeks. Patient has right voluntarily and would like to stay in the emergency department which I believe is appropriate. Medical screening exam is unremarkable. He has not made any attempt to harm himself today. Medical screening labs will be obtained. He is cleared for evaluation and disposition by psychiatry - Laboratory Result Diagrams: 04/24/17 21:46 04/24/17 21:46 Laboratory results interpreted by me: 04/24/17 04/24/17 21:46 21:46 RBC 4.24 L Hgb 13.2 L Salicylates < 1.0 L Acetaminophen < 10 L - EKG Interpretation by Me Additional EKG results interpreted by me: 04/24/17 22:12 Sinus rhythm. Rate 64. No ST elevations or depressions. QTC is 401. Discharge - Discharge Clinical Impression: Suicidal ideation, Noncompliance with medication regimen Schizophrenia Qualifiers: Schizophrenia type: unspecified Qualified Code(s): F20.9 - Schizophrenia, unspecified Alcohol intoxication Qualifiers: Complication of substance-induced condition: uncomplicated Qualified Code(s): F10.920 - Alcohol use, unspecified with intoxication, uncomplicated Condition: Fair Disposition: PSYCH HOSP/UNIT
[2017-04-24 22:21] LABS: ALCOHOL < 10 mg/dL (NONE DETECTED)
[2017-04-24 22:22] LABS: ACETAMINOPHEN < 10 ug/mL (10-30); SALICYLATE < 1.0 mg/dL (2.0-20.0)
--- NOTE | 2017-04-25 07:51 | EKG REPORT ---
SEVERITY:- BORDERLINE ECG - SINUS RHYTHM PROBABLE LEFT ATRIAL ABNORMALITY BORDERLINE T ABNORMALITIES, INFERIOR LEADS : Confirmed by: Aaron Mcneill MD 25-Apr-2017 07:50:16
[2017-04-25 07:56] LABS: APPEARANCE,URINE CLEAR; BILIRUBIN,URINE NEGATIVE (NEGATIVE); COLOR,URINE YELLOW; GLUCOSE, URINE NEGATIVE (NEGATIVE); KETONES,URINE NEGATIVE (NEGATIVE); LEUKOCYTE ESTERASE,URINE NEGATIVE (NEGATIVE); NITRITE,URINE NEGATIVE (NEGATIVE); PROTEIN,URINE NEGATIVE (NEGATIVE); URINE SPECIFIC GRAVITY 1.019
[2017-04-25 08:17] LABS: URINE AMPHETAMINES SCREEN NEGATIVE; URINE BARBITURATES SCREEN NEGATIVE; URINE BENZODIAZEPINES SCREEN NEGATIVE; URINE COCAINE SCREEN NEGATIVE; URINE MARIJUANA (THC) SCREEN NEGATIVE; URINE METHADONE SCREEN NEGATIVE; URINE PHENCYCLIDINE SCREEN NEGATIVE
--- NOTE | 2017-04-25 09:24 | ER Document Report ---
Doctor's Note Notes: 04/25/17 09:24 32-year-old male with past medical history of schizophrenia supposedly out of medications for 3-4 weeks. Patient presented with some suicidal ideations and possibly alcohol abuse. Patient does admit to have a firearm access. Patient currently is calm and cooperative in no acute distress. Labs and vital signs as recorded. Awaiting psychology team evaluation. 04/25/17 15:09 Pt lives at [facility]. Patient states he likes to mix up words. Patient is calm and cooperative in no acute distress. He denies any suicidal homicidal ideations. The care facility is happy to take the patient back at this time.
--- NOTE | 2017-04-25 15:15 | PSYCHOLOGICAL NOTE ---
Psych Note - Psych Note Psych Note: Reason for consult: Contact Permissions: [facility] ( where patient resides) Amaris [[phone]] Patient is a 32 year old male. Patient reports that he has "lock jaw" and was unable to speak clearly. However, clinician observed when clinician left the room patient was speaking clearly to the nurse requesting things from the nurse. Patient denies SI/HI. Patient reports that he takes medications. Clinician observed patient exhibits poor eye contact. Clinician observed patient exhibits disorganized speech,flat affect, and disorganized behavior. Clinician returned at a later time to clarify information shared by the physician. Patient reports that he said he likes to chew gum when he is upset. Patient stated " when I get mad I chew gum". Patient reports he likes to mix up his words, words that sound the same like gum and gun. Patient reports he makes gun noises with his mouth. Collateral contact information: Per information gathered from director of casework Gus Gamboa ( Please refer to Gus Hollins's note for additional information). [facility] Coordinator Amaris states patient is at baseline, and patient has received his long acting shot that he receives monthly to treat his schizophrenia. Coordinator states patient does not have access to a gun in their home, or alcohol. Medication recommendation: Medication recommendations made by the contracted [facility] psychiatric provider Dr. Jimenez includes: Diagnosis: Per Hx 295.90 ( F20.9) Schizophrenia Impression/ Plan: Patient is psychiatrically cleared for discharge. Recommendation for patient to follow up with primary care provider. Patient resides at an assisted living facility called [facility]; their coordinator Amaris has agreed to be a part of his discharge plan and has arranged his primary care provider appointment, the facility manages his medications and has administered his monthly shot.
[2017-04-25 15:51] VITALS: BP 124/92
== END 2017-04-25 18:30 ==
LOC: ER 21:23
DX: F20.9 Schizophrenia, unspecified (principal); R45.851 Suicidal ideations; T50.906A Underdosing of unspecified drugs, medicaments and biological substances, initial encounter; Z91.128 Patient's intentional underdosing of medication regimen for other reason; Z91.14 Patient's other noncompliance with medication regimen; F10.120 Alcohol abuse with intoxication, uncomplicated; F17.200 Nicotine dependence, unspecified, uncomplicated; Z91.5 Personal history of self-harm; Z88.8 Allergy status to other drugs, medicaments and biological substances
CPT/HCPCS: 36415; 80053; 80307; 81001; 85025; 93005; 93010; 99285

== ENCOUNTER 2017-04-26 18:30 | Emergency (ER) | payer MEDICAID ==
--- NOTE | 2017-04-26 19:35 | ER Document Report ---
ED Psych Disorder / Suicide - General Chief Complaint: Psych Problem Stated Complaint: PSYCH EVAL Time Seen by Provider: 04/26/17 18:44 Notes: Patient is a 32-year-old male, past medical history schizophrenia, presents from his intermediate after he was noticed to be eating soap. Patient was also not talking to staff members. Patient is actively eating soap while in the emergency room and walking around the room mumbling. From my prior interactions with the patient, this is an acute change. Patient is unable to tell me if he is receiving his psychiatric medications and is unable to provide any additional history. TRAVEL OUTSIDE OF THE [place] IN LAST 30 DAYS: No - Related Data Allergies/Adverse Reactions: benztropine [From Cogentin] Allergy (Verified 11/04/16 19:10) divalproex sodium [From Depakote] Allergy (Verified 11/04/16 19:10) haloperidol [From Haldol] Allergy (Verified 04/26/17 18:32) lithium Allergy (Verified 04/26/17 18:32) risperidone [From Risperdal] Allergy (Verified 11/04/16 19:10) ziprasidone [From Geodon] Allergy (Verified 11/04/16 19:10) Past Medical History - General Cannot obtain history due to: Uncooperative - Social History Smoking Status: Unknown if Ever Smoked Chew tobacco use (# tins/day): No Frequency of alcohol use: None Drug Abuse: None Family History: Reviewed & Not Pertinent Patient has suicidal ideation: No Patient has homicidal ideation: No Renal/ Medical History: Denies: Hx Peritoneal Dialysis Psychiatric Medical History: Reports: Hx Bipolar Disorder, Hx Depression, Hx Schizophrenia - Immunizations Hx Diphtheria, Pertussis, Tetanus Vaccination: Yes Review of Systems - Review of Systems -: Yes ROS unobtainable due to patient's medical condition Physical Exam - Vital signs Vitals: Temp Pulse Resp BP Pulse Ox 98.5 F 96 16 109/68 98 04/26/17 18:41 04/26/17 18:41 04/26/17 18:41 04/26/17 18:41 04/26/17 18:41 - Notes Notes: PHYSICAL EXAMINATION: GENERAL: No acute distress. Walking around room mumbling to himself. Eating soap in room. HEAD: Atraumatic, normocephalic. EYES: Pupils equal round and reactive to light, extraocular movements intact, sclera anicteric, conjunctiva are normal. ENT: nares patent, oropharynx clear without exudates. Moist mucous membranes. NECK: Normal range of motion, supple without lymphadenopathy LUNGS: Breath sounds clear to auscultation bilaterally and equal. No wheezes rales or rhonchi. HEART: Regular rate and rhythm without murmurs ABDOMEN: Soft, nontender, normoactive bowel sounds. No guarding, no rebound. No masses appreciated. EXTREMITIES: Normal range of motion, no pitting or edema. No cyanosis. NEUROLOGICAL: Cranial nerves grossly intact. Normal gait. Normal sensory and motor exams. PSYCH: Uncooperative. SKIN: Warm, Dry, normal turgor, no rashes or lesions noted. Course - Re-evaluation Re-evalutation: 04/26/17 20:37 Pt appears acutely psychotic in a mostly catatonic state. Compared to prior ER visits, this is an acute change. Unable to obtain any additional history from the patient. Will provide a Zyprexa dose tonight and will have mental health evaluate patient in the morning. - Vital Signs Vital signs: Temp Pulse Resp BP Pulse Ox 98.5 F 96 16 109/68 98 04/26/17 18:41 04/26/17 18:41 04/26/17 18:41 04/26/17 18:41 04/26/17 18:41 - Laboratory Result Diagrams: 04/26/17 19:22 04/26/17 19:22 Laboratory results interpreted by me: 04/26/17 04/26/17 19:22 19:22 Seg Neutrophils % 81.2 H Lymphocytes % 9.4 L Salicylates < 1.0 L Acetaminophen < 10 L Discharge - Discharge Clinical Impression: Bizarre behavior Condition: Stable Referrals: ASTON BACA MD [Primary Care Provider] - Follow up as needed
[2017-04-26 19:50] LABS: ABSOLUTE EOSINOPHILS # (AUTO) 0.1 10^3/uL (0.0-0.6); ABSOLUTE LYMPHOCYTES (AUTO) 0.9 10^3/uL (0.5-4.7); ABSOLUTE MONOCYTES (AUTO) 0.8 10^3/uL (0.1-1.4); ABSOLUTE NEUT (AUTO) 7.9 10^3/uL (1.7-8.2); BASOPHILS % (AUTO) 0.4 % (0-2); EOSINOPHILS % (AUTO) 0.8 % (0-6); HEMATOCRIT 40.1 % (37.9-51.0); HEMOGLOBIN 13.7 g/dL (13.5-17.0); LYMPHOCYTES % (AUTO) 9.4 % (13-45); MEAN CORPUSCULAR HEMOGLOBIN 31.4 pg (27.0-33.4); MEAN CORPUSCULAR HGB CONC 34.3 g/dL (32.0-36.0); MEAN CORPUSCULAR VOLUME 92 fl (80-97); MONOCYTES % (AUTO) 8.2 % (3-13); PLATELET COUNT 325 10^3/uL (150-450); RED BLOOD COUNT 4.37 10^6/uL (4.35-5.55); RED CELL DISTRIBUTION WIDTH 13.2 % (11.5-14.0); SEGMENTED NEUTROPHILS % (AUTO) 81.2 % (42-78); TOTAL CELLS COUNTED % (AUTO) 100 %; WHITE BLOOD COUNT 9.8 10^3/uL (4.0-10.5)
[2017-04-26 20:02] LABS: ALANINE AMINOTRANSFERASE 40 U/L (21-72); ALBUMIN 4.8 g/dL (3.5-5.0); ALKALINE PHOSPHATASE 84 U/L (38-126); ANION GAP 11 (5-19); ASPARTATE AMINO TRANSFERASE 26 U/L (17-59); BILIRUBIN,DIRECT 0.2 mg/dL (0.0-0.4); BILIRUBIN,TOTAL 0.6 mg/dL (0.2-1.3); BLOOD UREA NITROGEN 16 mg/dL (7-20); CALCIUM 9.9 mg/dL (8.4-10.2); CARBON DIOXIDE 30 mmol/L (22-30); CHLORIDE 100 mmol/L (98-107); GLUCOSE 110 mg/dL (75-110); POTASSIUM 4.1 mmol/L (3.6-5.0); SODIUM 141.4 mmol/L (137-145); TOTAL PROTEIN 7.2 g/dL (6.3-8.2)
[2017-04-26 20:03] LABS: ACETAMINOPHEN < 10 ug/mL (10-30); ALCOHOL < 10 mg/dL (NONE DETECTED); SALICYLATE < 1.0 mg/dL (2.0-20.0)
[2017-04-26] MEDS ORDERED: OLANZAPINE 5 MG TABLET PO ONE (20:32)
[2017-04-26 21:36] LABS: APPEARANCE,URINE CLEAR; BILIRUBIN,URINE NEGATIVE (NEGATIVE); COLOR,URINE YELLOW; GLUCOSE, URINE NEGATIVE (NEGATIVE); KETONES,URINE NEGATIVE (NEGATIVE); LEUKOCYTE ESTERASE,URINE NEGATIVE (NEGATIVE); NITRITE,URINE NEGATIVE (NEGATIVE); PROTEIN,URINE 30 mg/dL (NEGATIVE); URINE SPECIFIC GRAVITY 1.032
[2017-04-26 21:49] LABS: URINE AMPHETAMINES SCREEN NEGATIVE; URINE BARBITURATES SCREEN NEGATIVE; URINE BENZODIAZEPINES SCREEN NEGATIVE; URINE COCAINE SCREEN NEGATIVE; URINE MARIJUANA (THC) SCREEN UNCONFIRMED POSITIVE; URINE METHADONE SCREEN NEGATIVE; URINE PHENCYCLIDINE SCREEN NEGATIVE
--- NOTE | 2017-04-26 21:50 | EKG REPORT ---
SEVERITY:- BORDERLINE ECG - SINUS RHYTHM BORDERLINE T ABNORMALITIES, DIFFUSE LEADS : Confirmed by: Nata Price 26-Apr-2017 21:49:33
[2017-04-27 07:02] VITALS: BP 95/53
[2017-04-27] MEDS ORDERED: OLANZAPINE INJ/PF 10 MG SDV IM ONE (08:07)
--- NOTE | 2017-04-27 11:14 | PSYCHOLOGICAL NOTE ---
Psych Note - Psych Note Psych Note: Reason for consult: Patient was found eating soup at his penitentiary Time of consult: 8:55 am Final Disposition: 10 am Patient is a 32 year old male. Patient denies SI/HI. Patient is mumbling when asked assessment questions. Clinician needed to redirect patient and ask patient to cease masturbation during assessment. Patient continuously touching his genitals. Clinician explained patient was going to be discharged back to his penitentiary, patient stated " ok I go". Clinician observed patient needed to be redirected multiple times by nursing staff due to masturbating near his room doorway. Collateral Contact: [place] ( [place]Luis Alfredo [phone] Luis stated the penitentiary has been dealing with patient's ongoing behaviors. Luis stated their penitentiary is trying to find a different placement for patient, a adjunct [facility] for medical terminology facility that is able to provide more care specific to meet patient's need. Luis reports he has been in contact with patient's father who is allegedly the guardian of patient. Luis requested that clinician assist him in finding long-term placement for patient. Clinician explained the roles and scope of practice in the ED setting, and providing education on redirecting/ managing behaviors associated with mental illness. Luis stated he would contact patient's medication provider ( [facility]) to get an appointment within the next few days, patient was seen last and was not scheduled for an appointment until next month. Medication recommendation made by [facility] contracted psychiatric provider Dr. Tony MD includes: None. Diagnosis: Per Hx 295.90 ( F20.9) Schizophrenia Impression/Plan: Patient is psychiatrically cleared for discharge. Patient presented to the ED due to bizarre behavior ( eating soap). Based on the psychiatric evaluation [facility] has psychiatrically cleared patient, suggesting the event was behavioral and correlated with his diagnosis of schizophrenia. Collateral information obtained revealed patient received a long- acting medication shot to treat the schizophrenia, suggesting these behaviors are baseline. However, our recommendation is to have patient's psychiatric provider re-evaluate to assess if medication adjustments are needed. Recommendation to follow up with medication management/psychiatric provider at [facility]. [facility] has communicated this recommendation with [facility] manager Luis Fuentes. Consulted with Dr. Willett regarding the management and care of patient.
== END 2017-04-27 14:35 | disposition home or self-care (01) ==
LOC: ER 18:30
DX: F20.9 Schizophrenia, unspecified (principal); R46.1 Bizarre personal appearance
CPT/HCPCS: 93005; 99285; 96372; 36415; 80307 ×4; 85025; 80053; 81001; 93010; J3490

== ENCOUNTER 2017-04-30 16:23 | Emergency (ER) | payer OTHER ==
[2017-04-30 17:08] VITALS: BP 115/78
--- NOTE | 2017-04-30 17:44 | ER Document Report ---
ED General - General Chief Complaint: Psych Problem Stated Complaint: PSYCH EVAL Time Seen by Provider: 04/30/17 17:14 Notes: 32-year-old male with chronic schizophrenia and behavioral issues seen 3 days ago in the ED for behavioral problems and cleared and discharged returns for odd behavior at a bank. Patient is silence and will not answer questions. TRAVEL OUTSIDE OF THE [place] IN LAST 30 DAYS: No - Related Data Allergies/Adverse Reactions: benztropine [From Cogentin] Allergy (Verified 11/04/16 19:10) divalproex sodium [From Depakote] Allergy (Verified 11/04/16 19:10) haloperidol [From Haldol] Allergy (Verified 04/26/17 18:32) lithium Allergy (Verified 04/26/17 18:32) risperidone [From Risperdal] Allergy (Verified 11/04/16 19:10) ziprasidone [From Geodon] Allergy (Verified 11/04/16 19:10) Past Medical History - General Cannot obtain history due to: Mentally challenged - Social History Smoking Status: Unknown if Ever Smoked Chew tobacco use (# tins/day): No Frequency of alcohol use: None Drug Abuse: None Family History: Reviewed & Not Pertinent Patient has suicidal ideation: No Patient has homicidal ideation: No Renal/ Medical History: Denies: Hx Peritoneal Dialysis Psychiatric Medical History: Reports: Hx Bipolar Disorder, Hx Depression, Hx Schizophrenia - Immunizations Hx Diphtheria, Pertussis, Tetanus Vaccination: Yes Review of Systems - Review of Systems Notes: R PHYSICAL EXAMINATION General: No acute distress, well-nourished Head: Atraumatic, normocephalic ENT: Mouth normal, oropharynx moist, no exudates or tonsillar enlargement Eyes: Conjunctiva normal, pupils equal, lids normal Neck: No JVD, supple, no guarding CVS: Normal rate, regular rhythm, no murmurs Resp: No resp distress, equal and normal breath sounds bilaterally GI: Nondistended, soft, no tenderness to palpation, no rebound or guarding Ext: No deformities, no edema, normal range of motion in upper and lower ext Back: No CVA or midline TTP Skin: No rash, warm Lymphatic: No lymphadeopathy noted Neuro: Awake, alert. Face symmetric. GCS 15. Psychiatric: Flat affect. Does not seem to respond responding to internal stimuli. Refusing to answer questions. -: Yes ROS unobtainable due to patient's medical condition Physical Exam - Vital signs Vitals: Temp Pulse Resp BP Pulse Ox 97.8 F 69 16 115/78 100 04/30/17 16:37 04/30/17 16:37 04/30/17 16:37 04/30/17 16:37 04/30/17 16:37 Course - Re-evaluation Re-evalutation: 04/30/17 17:43 Patient with chronic schizophrenia presents with odd behavior not unlike his behavior a couple of days ago. He does not seem to be responding to internal stimuli or hallucinating and based on recent assessment is not a danger to himself or others. He is in a [facility] with good follow-up and gets long- acting injectable antipsychotics. Do not think he needs emergency evaluation today and is safe for discharge home. - Vital Signs Vital signs: Temp Pulse Resp BP Pulse Ox 97.8 F 69 16 115/78 100 04/30/17 16:37 04/30/17 16:37 04/30/17 16:37 04/30/17 16:37 04/30/17 16:37 - Laboratory Result Diagrams: 04/30/17 17:15 04/30/17 17:15 Discharge - Discharge Clinical Impression: Schizophrenia Qualifiers: Schizophrenia type: unspecified Qualified Code(s): F20.9 - Schizophrenia, unspecified Condition: Good Disposition: HOME, SELF-CARE Instructions: [facility]ia ([facility] Referrals: ASTON BACA MD [Primary Care Provider] - Follow up as needed
[2017-04-30 18:03] LABS: ABSOLUTE LYMPHOCYTES (AUTO) 2.4 10^3/uL (0.5-4.7); ABSOLUTE MONOCYTES (AUTO) 0.8 10^3/uL (0.1-1.4); ABSOLUTE NEUT (AUTO) 8.1 10^3/uL (1.7-8.2); BASOPHILS % (AUTO) 0.4 % (0-2); EOSINOPHILS % (AUTO) 0.4 % (0-6); HEMATOCRIT 43.4 % (37.9-51.0); HEMOGLOBIN 14.5 g/dL (13.5-17.0); LYMPHOCYTES % (AUTO) 20.9 % (13-45); MEAN CORPUSCULAR HEMOGLOBIN 30.8 pg (27.0-33.4); MEAN CORPUSCULAR HGB CONC 33.3 g/dL (32.0-36.0); MEAN CORPUSCULAR VOLUME 93 fl (80-97); MONOCYTES % (AUTO) 7.1 % (3-13); PLATELET COUNT 349 10^3/uL (150-450); RED BLOOD COUNT 4.69 10^6/uL (4.35-5.55); RED CELL DISTRIBUTION WIDTH 13.2 % (11.5-14.0); SEGMENTED NEUTROPHILS % (AUTO) 71.2 % (42-78); TOTAL CELLS COUNTED % (AUTO) 100 %; WHITE BLOOD COUNT 11.4 10^3/uL (4.0-10.5)
[2017-04-30 18:20] LABS: APPEARANCE,URINE CLEAR; BILIRUBIN,URINE NEGATIVE (NEGATIVE); COLOR,URINE YELLOW; GLUCOSE, URINE NEGATIVE (NEGATIVE); KETONES,URINE TRACE mg/dL (NEGATIVE); LEUKOCYTE ESTERASE,URINE NEGATIVE (NEGATIVE); NITRITE,URINE NEGATIVE (NEGATIVE); PROTEIN,URINE NEGATIVE (NEGATIVE); URINE SPECIFIC GRAVITY 1.027; UROBILINOGEN,URINE NEGATIVE mg/dL (<2.0)
[2017-04-30 18:29] LABS: ALANINE AMINOTRANSFERASE 45 U/L (21-72); ALBUMIN 4.9 g/dL (3.5-5.0); ALKALINE PHOSPHATASE 95 U/L (38-126); ANION GAP 12 (5-19); ASPARTATE AMINO TRANSFERASE 39 U/L (17-59); BILIRUBIN,DIRECT 0.4 mg/dL (0.0-0.4); BILIRUBIN,TOTAL 0.8 mg/dL (0.2-1.3); BLOOD UREA NITROGEN 13 mg/dL (7-20); CARBON DIOXIDE 27 mmol/L (22-30); CHLORIDE 103 mmol/L (98-107); GLUCOSE 87 mg/dL (75-110); POTASSIUM 4.3 mmol/L (3.6-5.0); SODIUM 141.5 mmol/L (137-145); TOTAL PROTEIN 8.1 g/dL (6.3-8.2)
[2017-04-30 18:32] LABS: ALCOHOL < 10 mg/dL (NONE DETECTED)
[2017-04-30 18:33] LABS: ACETAMINOPHEN < 10 ug/mL (10-30); SALICYLATE < 1.0 mg/dL (2.0-20.0)
[2017-04-30 18:48] LABS: URINE AMPHETAMINES SCREEN NEGATIVE; URINE BARBITURATES SCREEN NEGATIVE; URINE BENZODIAZEPINES SCREEN NEGATIVE; URINE COCAINE SCREEN NEGATIVE; URINE MARIJUANA (THC) SCREEN UNCONFIRMED POSITIVE; URINE METHADONE SCREEN NEGATIVE; URINE PHENCYCLIDINE SCREEN NEGATIVE
== END 2017-04-30 18:20 | disposition home or self-care (01) ==
LOC: ER 16:23
DX: F20.9 Schizophrenia, unspecified (principal)
CPT/HCPCS: 36415; 80053; 80307; 81001; 85025; 99285

== ENCOUNTER 2017-05-01 17:28 | Emergency (ER) | payer OTHER ==
--- NOTE | 2017-05-01 17:38 | ER Document Report ---
ED General - General Stated Complaint: SUICIDAL IDEATION Time Seen by Provider: 05/01/17 17:37 Notes: Patient with chronic schizophrenia and behavioral disturbance presents for his third visit in 3 days. Apparently he had suicidal ideation just like he did yesterday but he is not telling me that. Bizarre behaviors still present. Patient was evaluated extensively by the behavioral health team psychiatry and outpatient case management/social work yesterday. They have come to the conclusion that he should probably be arrested for abuse of emergency services and is not suffering from acute psychotic episodes but rather behaviorally impaired secondary to not liking where he lives. The patient refuses to give me a history at all. TRAVEL OUTSIDE OF THE [place] IN LAST 30 DAYS: No - Related Data Allergies/Adverse Reactions: benztropine [From Cogentin] Allergy (Verified 11/04/16 19:10) divalproex sodium [From Depakote] Allergy (Verified 11/04/16 19:10) haloperidol [From Haldol] Allergy (Verified 04/26/17 18:32) lithium Allergy (Verified 04/26/17 18:32) risperidone [From Risperdal] Allergy (Verified 11/04/16 19:10) ziprasidone [From Geodon] Allergy (Verified 11/04/16 19:10) Past Medical History - General Cannot obtain history due to: Mentally challenged - Social History Smoking Status: Current Every Day Smoker Smoking Education Provided: Yes - The patient ED visit today was directly related to their abuse of tobacco. Family History: Reviewed & Not Pertinent Renal/ Medical History: Denies: Hx Peritoneal Dialysis Psychiatric Medical History: Reports: Hx Bipolar Disorder, Hx Depression, Hx Schizophrenia - Immunizations Hx Diphtheria, Pertussis, Tetanus Vaccination: Yes Review of Systems - Review of Systems Notes: Cannot obtain secondary to compliance PHYSICAL EXAMINATION General: No acute distress, well-nourished Head: Atraumatic, normocephalic ENT: Mouth normal, oropharynx moist, no exudates or tonsillar enlargement Eyes: Conjunctiva normal, pupils equal, lids normal Neck: No JVD, supple, no guarding CVS: Normal rate, regular rhythm, no murmurs Resp: No resp distress, equal and normal breath sounds bilaterally GI: Nondistended, soft, no tenderness to palpation, no rebound or guarding Ext: No deformities, no edema, normal range of motion in upper and lower ext Back: No CVA or midline TTP Skin: No rash, warm Lymphatic: No lymphadeopathy noted Neuro: Awake, alert. Face symmetric. GCS 15. Psych: Flat affect denies suicidal ideation -: Yes ROS unobtainable due to patient's medical condition Physical Exam - Vital signs Vitals: Temp Pulse Resp BP Pulse Ox 98.2 F 84 16 114/77 99 05/01/17 17:45 05/01/17 17:45 05/01/17 17:45 05/01/17 17:45 05/01/17 17:45 Course - Re-evaluation Re-evalutation: 05/01/17 18:10 Chronic recurrent ED visits for behavioral disturbance without acute psychiatric emergency. Reviewed case with bilingual social worker agree patient is stable for discharge home. He will be discharged back to his facility. I will not call police to arrest him because I do not believe that this is proper care by emergency physician. I have discussed with the patient there likely diagnosis, aftercare plan, follow-up plans and my usual and customary return precautions. They verbalized understanding of this. - Vital Signs Vital signs: Temp Pulse Resp BP Pulse Ox 98.2 F 84 16 114/77 99 05/01/17 17:45 05/01/17 17:45 05/01/17 17:45 05/01/17 17:45 05/01/17 17:45 Discharge - Discharge Clinical Impression: Bizarre behavior Schizophrenia Qualifiers: Schizophrenia type: other Qualified Code(s): F20.89 - Other schizophrenia Condition: Good Disposition: HOME, SELF-CARE Instructions: Schizophrenia ([facility])
[2017-05-01 17:48] VITALS: BP 114/77
== END 2017-05-01 20:15 | disposition home or self-care (01) ==
LOC: ER 17:28
DX: F20.9 Schizophrenia, unspecified (principal); F17.200 Nicotine dependence, unspecified, uncomplicated; Z88.8 Allergy status to other drugs, medicaments and biological substances
CPT/HCPCS: 99285

== ENCOUNTER 2017-05-02 10:55 | Emergency (ER) | payer MEDICAID, OTHER ==
--- NOTE | 2017-05-02 13:29 | PSYCHOLOGICAL NOTE ---
Psych Note - Psych Note Psych Note: Reason for consult: Alleged suicidal ideation Time of consult: 1430 Time of dispo: 14:45 Patient is a 32-year-old male. Patient reports he was upset because he came to the emergency room and wanted them to feed him and give him a blanket. Patient reports he did not want to be at his nursing home. Patient stated he cursed out staff because of the blanket. Patient refuse to answer any other assessment questions and began mumbling words. In addition observed patient needed redirection for sticking his hands in his pants and trying to masturbate during assessment. Clinician instructed patient to remove hands from pants. In addition observed patient become aggressive with staff verbally and through his tray against the door spilling the contents of his tray onto the floor (soda). Patient was seen here multiple times for varying complaints, patient was here 3 times within the last 7 days. Patient was instructed in the previous visit follow-up primary care provider. Patient[facility] s nursing [facility] [place] [facility] [place] was contacted at each visit and were also aware of the instructions for patient to follow-up with primary care provider. In addition observed patient's symptoms are behavioral, and not related to his mental health diagnosis of schizophrenia. Clinician observed patient presents differently to varying staff member, as evidenced by speaking clearly with staff members and refusing to speak to clinician. Medication recommendations made by psychiatric provider Dr. Tony MD includes: None Diagnosis: Schizophrenia by history; cluster B personality traits predominantly borderline personality disorder Impression/plan: Patient's presentation to ED once again was related to his dislike for his current living arrangement. Upon arrival he reported "suicidal ideation" but refused to cooperate within his last 3 visits. His presentation is behavioral in nature, acting out in an attempt to sabotage treatment and discharge efforts, and to avoid being sent back to his current nursing home. Patient has demonstrated similar behavior in the past but has been able to be redirected. During this past meeting month patient refuses to follow direction with regard to not calling EMS for transport because he is mad at his staff at the nursing home or because he wants to leave the nursing home. While at ED he becomes aggressive in terms of throwing his tray, intentionally and openly masturbating in front of staff and other patients to include young adolescents. He is at times redirectable. He is medication compliant, suggesting his behavior is volitional and not related to his mental health diagnosis. As such , he is abusing emergency services and being disorderly, disrupting patient care purposely. Thus [facility] was contacted and patient was taken into custody for abusive emergency service.Patient is psychiatrically cleared for discharge. Recommendation for patient to follow-up with primary care provider at [facility]. Consulted with Dr. Willett regarding the management and care of patient.
--- NOTE | 2017-05-02 13:40 | ER Document Report ---
ED Psych Disorder / Suicide - General TRAVEL OUTSIDE OF THE [place] IN LAST 30 DAYS: No - General Chief Complaint: Altered Mental Status Stated Complaint: PSYCH EVAL Time Seen by Provider: 05/02/17 13:14 Notes: Patient says that he feels suicidal. He lives in a local nursing home and is not happy there. He has been to this emergency department, for a total of 5 visits since April 24, 8 days. He says he has PTSD and ADHD. He has been uncooperative. Has been observed by staff to be masturbating in his exam room. Patient does not answer when asked if he has a plan for suicide. As I try to interview him, his voice gets slower and quieter to the point that it is a mumbled it cannot be understood. (MADELEINE MARSHALL) - Related Data Allergies/Adverse Reactions: benztropine [From Cogentin] Allergy (Verified 11/04/16 19:10) divalproex sodium [From Depakote] Allergy (Verified 11/04/16 19:10) haloperidol [From Haldol] Allergy (Verified 04/26/17 18:32) lithium Allergy (Verified 04/26/17 18:32) risperidone [From Risperdal] Allergy (Verified 11/04/16 19:10) ziprasidone [From Geodon] Allergy (Verified 11/04/16 19:10) Past Medical History - Social History Smoking Status: Unknown if Ever Smoked Family History: Reviewed & Not Pertinent Psychiatric Medical History: Reports: Hx Bipolar Disorder, Hx Depression, Hx Schizophrenia - Immunizations Hx Diphtheria, Pertussis, Tetanus Vaccination: Yes Review of Systems - Review of Systems -: Yes ROS unobtainable due to patient's medical condition Physical Exam - Vital signs Interpretation: Normal - Vital signs Vitals: Temp Pulse Resp BP Pulse Ox 97.7 F 78 16 125/68 98 05/02/17 11:38 05/02/17 11:38 05/02/17 11:38 05/02/17 11:38 05/02/17 11:38 - Notes Notes: PHYSICAL EXAMINATION: GENERAL: Well-appearing, in no acute distress. Ambulates to the bathroom with no assistance. HEAD: Atraumatic, normocephalic. EYES: Pupils equal round and reactive to light, extraocular movements intact. ENT: oropharynx clear without exudates. Moist mucous membranes. NECK: Normal range of motion, supple. LUNGS: Breath sounds clear and equal bilaterally. HEART: Regular rate and rhythm without murmurs. ABDOMEN: Soft, nontender. No guarding or rebound. No masses. BACK: No tenderness throughout entire back. EXTREMITIES: Normal range of motion without pain. NEUROLOGICAL: Normal gait. Normal sensory, motor, and reflex exams. Awake, alert, not sure if oriented 3. Speech is a very soft mumble but is unintelligible. PSYCH: Mumbling at such a low volume I cannot hear what he saying. Behavior has been abnormal as witnessed by staff. Evaluated by mental health who feels he does not have condition that requires further emergency department care. SKIN: Warm, dry, no rashes. (MADELEINE MARSHALL) - Vital Signs Vital signs: Temp Pulse Resp BP Pulse Ox 97.7 F 78 16 125/68 98 05/02/17 11:38 05/02/17 11:38 05/02/17 11:38 05/02/17 11:38 05/02/17 11:38 Discharge - Discharge Clinical Impression: Bizarre behavior, Behavioral problem Condition: Stable Disposition: HOME, SELF-CARE Additional Instructions: Counseling Services It has been recommended that you seek professional counseling to assist you with the stresses that you are experiencing. Most people at some time in their lives experience personal problems with which they need help. Pride and feeling that one can't be helped keep a lot of people from the benefits of counseling. Follow up CARE: You presented to the ED requesting to speak with mental health for an assessment. You were previously seen in the emergency department within the last week and given discharge instructions to assist you in managing your symptoms to include the stress occurring in your environment. Based on your evaluation it is recommended by mental health for you to follow-up with your primary care provider at [facility] for outpatient therapy. Referrals: [facility] [Provider Group] - Follow up in 3-5 days
[2017-05-02 14:44] VITALS: BP 115/65
--- NOTE | 2017-05-03 13:19 | EKG REPORT ---
SEVERITY:- ABNORMAL ECG - SINUS RHYTHM PROBABLE LEFT ATRIAL ABNORMALITY LEFT POSTERIOR FASCICULAR BLOCK : Confirmed by: Aaron Mcneill MD 03-May-2017 13:19:02
== END 2017-05-02 14:35 | disposition home or self-care (01) ==
LOC: ER 10:55
DX: F91.9 Conduct disorder, unspecified (principal); R41.82 Altered mental status, unspecified
CPT/HCPCS: 93005; 93010; 99285